=== PATIENT | female | born 1935 | race African-American/Black ===

== ENCOUNTER 2018-05-15 16:12 | Emergency (ER) | payer OTHER ==
[~2018-05-15] VITALS: Ht 167.6 cm; Wt 68.0 kg
--- NOTE | ~2018-05-15 | EKG ---
[place] [address] [facility] [place] [address] ELECTROCARDIOGRAM REPORT Name: MADAI VANCE Room #: PRE [facility].#: [id number] Admission: Attend Phys: Discharge: Date of : 35 Report #: [id number] THIS REPORT FOR: //name// [facility] ED Test Date: 2018-05-15 Test Time: 16:57:47 Pat Name: MADAI VANCE Department: Room: Gender: F Pin Sorter And Bagger: FABI : 1935 Requested By: Estevan Barnes Order Number: [id number] MD: Juan Luis Hagan Measurements Intervals [place] Rate: 50 P: MD: QRS: -51 QRSD: 117 T: -71 QT: 580 QTc: 529 Interpretive Statements Normal sinus rhythm. LVH with IVCD, LAD and secondary repol abnrm No previous ECG available for comparison Electronically Signed On 05-15-2018 17:06:40 CDT by Juan Luis Hagan [email or web address] <ELECTRONICALLY SIGNED> By: Juan Luis Hagan MD 05/15/18 1706 1657 1657 Juan Luis Hagan MD /KATHIA
[~2018-05-15 16:12] MED LIST: LIPITOR10 MG PO; NORVASC 5 MG TAB5 MG PO
[2018-05-15] MEDS ORDERED: LOPRESSOR25 PO (18:57)
[2018-05-15] MEDS ORDERED: PACERONE 200 M200 M1 PO (18:57)
[2018-05-15 21:40] VITALS: BP 136/65
== END 2018-05-15 21:41 | disposition home or self-care (01) ==
LOC: ER 16:12
DX: R00.1 Bradycardia, unspecified (principal); I10 Essential (primary) hypertension; E78.00 Pure hypercholesterolemia, unspecified; F03.90 Unspecified dementia, unspecified severity, without behavioral disturbance, psychotic disturbance, mood disturbance, and anxiety

== ENCOUNTER 2018-07-23 18:59 | Inpatient (IN) | payer OTHER ==
[~2018-07-23] VITALS: Ht 162.6 cm; Wt 61.7 kg
--- NOTE | ~2018-07-23 | O ---
[facility] [place] [address] OPERATIVE REPORT Name: VANCEMADAI Room #: 420-P ADM IN M.R.#: [id number] Admission: 07/23/18 Attend Phys: Ilene Bond Discharge: Date of : 35 Report #: [id number] THIS REPORT FOR: //name// CC: Kaitlynn Baldwin Kraig Valles DATE OF SERVICE: 07/25/2018 SURGEON: Charlie Magaña M.D. STRIP CUTTING MACHINE OPERATOR: None. PREOPERATIVE DIAGNOSES: 1. Unstageable right hip/ischial tuberosity decubitus ulcer. 2. Dementia. 3. Acute kidney injury. 4. Hypertension. 5. Paroxysmal atrial fibrillation. POSTOPERATIVE DIAGNOSES: 1. Stage 4 right hip/ischial tuberosity decubitus ulcer. 2. Dementia. 3. Acute kidney injury. 4. Hypertension. 5. Paroxysmal atrial fibrillation. PROCEDURE: Excisional and ultrasonic debridement of stage 4 right hip/ischial tuberosity decubitus ulcer including skin, subcutaneous tissue and muscle. -Starting measurement 5 x 4 cm. -Ending measurement 7 x 6.5 cm. *Total area of 45.5 square cm. ANESTHESIA: General laryngeal mask anesthesia and local anesthetic. ESTIMATED BLOOD LOSS: 10 mL. SPECIMEN: Right ischial soft tissue including skin, subcutaneous tissue and muscle. COMPLICATIONS: None appreciated. INDICATIONS FOR PROCEDURE: This is a 89-year-old female patient who is a resident at [facility] who has developed a right hip wound over the past several months. The patient was seen in the Emergency Room due to worsening of the wound. Exam revealed an unstageable right ischial decubitus ulcer. She presents today for excisional and ultrasonic debridement. [address] [address] OPERATIVE REPORT Name: RAJIVMADAI Room #: 420-P [facility] IN M.R.#: [id number] Admission: 07/23/18 Attend Phys: Ilene Bond Discharge: Date of : 35 Report #: [id number] DESCRIPTION OF PROCEDURE IN DETAIL: After the risks, benefits and expectations of the operation were discussed in detail with the patient's durable power of real estate attorney and the patient, informed consent was obtained. The patient was identified in the preoperative holding area. She was taken to the Operating Room and she was placed in the supine position. SCDs were placed on the patient's bilateral lower extremities and pneumatic compression was initiated. The patient was then given IV sedation and a laryngeal mask was placed without difficulty. She was placed in the left lateral decubitus position with the right hip up. The right hip was then prepped and draped in the standard sterile fashion. A timeout was performed to identify the correct patient and procedure. Local anesthetic was infiltrated into the skin and subcutaneous tissue and the planned area of incision. A sharp #10 blade scalpel was used to make an incision through the skin and subcutaneous tissue. Electrocautery was used to dissect through the subcutaneous tissue and excised the necrotic tissue. The deep tissue was necrotic as well down to and partially through the muscle. Cultures were taken to be sent for aerobes, anaerobes and fungus. The skin was excised further to identify a healthy bleeding tissue. All grossly nonviable tissue was excised. The wound was then mechanically debrided with a curette. Bleeding points were made hemostatic with electrocautery. The Mitroonix ultrasonic debridement device was then used to mechanically debride the entire surface area of the wound on a more microscopic level. There was good cavitation of the nonviable tissue, which would also help to decrease the bacterial load. Bleeding points were again made hemostatic with electrocautery. After ensuring final hemostasis, the wound was packed with 1:1 Betadine to normal saline on a Kerlix gauze. A 4 x 4s, an ABD and tape were then placed. The patient tolerated the procedure well. She was returned to the supine position, awakened, the laryngeal mask was removed without difficulty and she was taken to the Recovery Room in stable condition with no apparent intraoperative complications. <ELECTRONICALLY SIGNED> By: Charlie Magaña MD, FACS 07/25/18 1223 0915 0952 Charlie Magaña MD, FACS /nt
--- NOTE | ~2018-07-23 | HC ---
[facility] [place] [address] CONSULTATION Name: MADAI VANCE Room #: 420-P [facility] IN M.R.#: [id number] Admission: 07/23/18 Attend Phys: Ilene Bond Discharge: Date of : 35 Report #: [id number] THIS REPORT FOR: //name// CC: Kaitlynn Baldwin Kraig Valles DATE OF SERVICE: 07/24/2018 CHIEF COMPLAINT: Pressure ulceration of the right hip and left heel. HISTORY OF PRESENT ILLNESS: This is an 83-year-old female patient who normally resides at the memory care unit at [facility]. She apparently excoriated her right hip 2-3 months ago, which has turned out into what appears to be necrotic ulceration, possibly exacerbated by pressure. She has had previous surgery on the left side. She developed a small ulceration on her heel that has been improving. The necrosis is on the right hip; however, has progressed to the point where surgical debridement will be required. She is admitted for surgical treatment and evaluation. PAST MEDICAL HISTORY: Positive for hypertension, hypercholesterolemia, advanced dementia, paroxysmal atrial fibrillation, allergic rhinitis, left hip fracture in 03/2018, bradycardia, anemia, requiring previous transfusion. SOCIAL HISTORY: The patient lives in a memory care unit. No history of alcohol or tobacco use. FAMILY HISTORY: Unknown and noncontributory. REVIEW OF SYSTEMS: Unobtainable due to the patient's level of dementia. MEDICATIONS: Include Pacerone, Lopressor, Lipitor, Norvasc, Singulair, aspirin, Tylenol, Xanax, Centrum Silver, Ventolin, and Mobic. PHYSICAL EXAMINATION: VITAL SIGNS: Include pulse 61, temperature 97.4, respiration of 18, blood pressure 120/54. GENERAL: This is a somewhat chronically ill appearing patient appears to be pleasant, in no distress. HEENT: Head normocephalic. Nose and throat clear. NECK: Supple. LUNGS: Clear. ABDOMEN: Soft. Bowel sounds present. EXTREMITIES: Lower extremities demonstrate stage 2 pressure ulceration to the left heel that is relatively superficial, clean, and granulating. Right hip demonstrates an area of circular necrosis over the greater trochanter. It is not overtly infected, although tissue feels boggy and is likely fairly deep. [address] [address] CONSULTATION Name: MADAI VANCE Room #: 420-P [facility] IN M.R.#: [id number] Admission: 07/23/18 Attend Phys: Ilene Bond Discharge: Date of : 35 Report #: [id number] CLINICAL IMPRESSION: 1. Unstageable pressure ulcer of the right hip, which developed apparently initially due to excoriations. 2. Stage 2 pressure in the left heel, improved. 3. Advanced dementia. RECOMMENDATIONS: At this point in time, we will obtain surgical consultation for debridement of the right hip. Likely, we will transition to a wound VAC. We will continue with a bordered foam to the left heel, PRAFO boots, air loss mattress, q. 2 hour turning positioning, aggressive nutritional support. Likely, after a few days, she will be able to return to [facility]. We will continue to follow her likely with a wound VAC. I have addressed all questions with the family. I appreciate being asked to see her in consultation. <ELECTRONICALLY SIGNED> By: Paramjit Davies MD 07/28/18 0754 0017 0239 Paramjit Davies MD /nt
--- NOTE | ~2018-07-23 | PATH ---
[facility] [address] [place] [address] PATHOLOGY RPT PROCEDURE Name: NADIA MORAN Room #: 420-P ADM IN M.R.#: [id number] Admission: 07/23/18 Date of : 35 Discharge: Report #: [id number] Path Case #: [id number] [facility] Accession Number: [id number] . 01 Material submitted: . RIGHT ISCHIAL TISSUE . 01 Clinical history: . Decubitus ulcer . 02 Diagnosis: Right ischial tissue, debridement: - Marked ulceration along with extensive acute inflammation extending into subcutaneous tissue associated with gangrenous necrosis, consistent with debridement tissue. (IUV/db; 07/28/18) LBQ/07/28/2018 . 02 Electronically signed: . Julia Sands MD, Pathologist NPI- [id number] . 01 Gross description: . The specimen is received in formalin, labeled "Nadia Moran, right ischial tissue" and consists of multiple fragments of necrotic pink-torrez to brown skin and soft tissue measuring 8.2 x 7.5 x 2.0 cm. [employer] sections are submitted in A1. (SDY; 07/25/2018) SYU/SYU . 02 Pathologist provided ICD-10: L89.219 . 02 CPT . 977574 Specimen Comment: A courtesy copy of this report has been sent to Specimen Comment: [phone], . Specimen Comment: Report sent to ,DR CHEW / DR CAGLE Specimen Comment: A duplicate report has been generated due to demographic updates. Performed at: [address] [place] [id number] [id number] MD Tomy Conrad MD Phone: [phone] Performed at: [address] [id number] [address] [address] PATHOLOGY RPT PROCEDURE Name: NADIA MORAN Room #: 420-P [facility] IN M.R.#: [id number] Admission: 07/23/18 Date of : 35 Discharge: Report #: [id number] Path Case #: [id number] MD Julia Sands MD Phone: [phone]
[~2018-07-23 18:59] MED LIST changes: +LOPRESSOR25 PO; +PACERONE 200 M200 M1 PO
[2018-07-23 19:01] VITALS: BP 153/48
[2018-07-23] MEDS ORDERED: NORVASC10 MG PO (19:21)
[2018-07-23] MEDS ORDERED: SINGULAIR 10 MG10 M1 PO (19:22)
[2018-07-23] MEDS ORDERED: ASPIR 8181 MG PO (19:23)
[2018-07-23] MEDS ORDERED: TYLENOL325 MG PO (19:23)
[2018-07-23] MEDS ORDERED: XANAX 0.25 MG0.25 MG PO (19:23)
[2018-07-23] MEDS ORDERED: VENTOLIN HFA 1818 GM INH (19:24)
[2018-07-23] MEDS ORDERED: CENTRUM SILVER1 EAC4 PO (19:24)
[2018-07-23] MEDS ORDERED: MOBIC7.5 MG PO (19:25)
[2018-07-23 20:28] LABS: ABSOLUTE NEUTROPHILS 6.9 thou/uL (1.4-8.2); EOSINOPHILS 1.8 % (0.0-3.0); HEMATOCRIT 27.8 % (37.0-47.0); HEMOGLOBIN 9.5 gm/dL (12.0-15.0); LYMPHOCYTES 9.9 % (24.0-44.0); MCH 28.9 pg (26.0-34.0); MCHC 34.2 g/dL (28.0-37.0); MCV 84.7 fL (80.0-100.0); MONOCYTES 8.3 % (1.0-8.0); PLATELET COUNT 370 thou/uL (150-400); RBC 3.28 mil/uL (4.20-5.00); RDW 15.5 % (10.5-14.5); WBC 8.7 thou/uL (4.0-11.0)
[2018-07-23 20:36] LABS: CALCIUM 9.4 mg/dL (8.5-10.1); CREATININE 1.7 mg/dL (0.6-1.0); POTASSIUM 4.5 mmol/L (3.5-5.1)
[2018-07-23 20:42] LABS: ALBUMIN 3.1 g/dL (3.4-5.0); TOTAL BILIRUBIN 0.5 mg/dL (<0.1-1.0); TOTAL PROTEIN 7.3 g/dL (6.4-8.2)
[2018-07-23 22:01] VITALS: BP 116/52
[2018-07-23 22:52] VITALS: BP 118/63
[2018-07-24 05:35] VITALS: BP 140/48
[2018-07-24 05:56] LABS: HEMATOCRIT 28.2 % (37.0-47.0); HEMOGLOBIN 9.4 gm/dL (12.0-15.0); MCH 28.4 pg (26.0-34.0); MCHC 33.3 g/dL (28.0-37.0); MCV 85.2 fL (80.0-100.0); RBC 3.31 mil/uL (4.20-5.00); RDW 15.5 % (10.5-14.5); WBC 7.5 thou/uL (4.0-11.0)
[2018-07-24 06:07] LABS: CALCIUM 9.1 mg/dL (8.5-10.1); CREATININE 1.5 mg/dL (0.6-1.0); POTASSIUM 4.2 mmol/L (3.5-5.1)
[2018-07-24 09:01] VITALS: BP 152/63
[2018-07-24 15:00] VITALS: BP 141/91
[2018-07-24 19:23] VITALS: BP 128/54
[2018-07-25 03:32] VITALS: BP 155/56
[2018-07-25 05:36] LABS: MAGNESIUM 1.8 mg/dL (1.8-2.4)
[2018-07-25 06:28] LABS: FOLIC ACID 40.6 ng/mL (8.6-58.9)
[2018-07-25 07:15] VITALS: BP 147/64
[2018-07-25 11:42] VITALS: BP 133/58
[2018-07-25 16:56] VITALS: BP 115/50
[2018-07-25 20:33] VITALS: BP 113/49
[2018-07-26 04:28] VITALS: BP 113/49
[2018-07-26 07:25] VITALS: BP 137/59
[2018-07-26 09:55] LABS: HEMATOCRIT 28.4 % (37.0-47.0); HEMOGLOBIN 9.5 gm/dL (12.0-15.0); MCH 28.6 pg (26.0-34.0); MCHC 33.4 g/dL (28.0-37.0); MCV 85.7 fL (80.0-100.0); RBC 3.31 mil/uL (4.20-5.00); WBC 7.7 thou/uL (4.0-11.0)
[2018-07-26 10:06] LABS: CREATININE 1.1 mg/dL (0.6-1.0); POTASSIUM 4.2 mmol/L (3.5-5.1)
[2018-07-26 20:01] VITALS: BP 123/56
[2018-07-27 04:06] VITALS: BP 148/98
[2018-07-27 07:20] VITALS: BP 155/59
[2018-07-27 16:49] VITALS: BP 139/57
[2018-07-27 19:28] VITALS: BP 115/67
[2018-07-28 05:25] VITALS: BP 129/47
[2018-07-28 09:44] VITALS: BP 142/55
[2018-07-28] MEDS ORDERED: TRAMADOL 50 MG50 MG PO (12:48)
[2018-07-28] MEDS ORDERED: MIRALAX17 GM PO (12:48)
[2018-07-28] MEDS ORDERED: BACTRIM DS TAB1 EACH PO (12:48)
[2018-07-28 17:17] VITALS: BP 138/60
[2018-07-28 20:15] VITALS: BP 119/59
[2018-07-28 20:45] VITALS: BP 125/56
[2018-07-29 05:00] VITALS: BP 176/76
[2018-07-29 05:30] VITALS: BP 133/54
[2018-07-29 09:00] VITALS: BP 130/57
[2018-07-29 15:52] VITALS: BP 118/42
[2018-07-30 06:36] VITALS: BP 129/63
[2018-07-30 08:09] VITALS: BP 112/50
[2018-07-30 13:00] VITALS: BP 121/50
== END 2018-07-30 15:07 | DRG 853 ==
LOC: ER 18:59 → EROBS 20:30 → 4E 20:30 → EROBS 20:35 → 4E 22:55
PROVIDERS: Emergency Medicine; Nurse Practitioner Family; Surgery
PROC: 0KBN0ZZ Excision of Right Hip Muscle, Open Approach (ICD-10-PCS; principal; 2018-07-25)
DX: A41.9 Sepsis, unspecified organism (principal); L89.623 Pressure ulcer of left heel, stage 3; L89.214 Pressure ulcer of right hip, stage 4; N17.9 Acute kidney failure, unspecified; E46 Unspecified protein-calorie malnutrition; I10 Essential (primary) hypertension; E78.00 Pure hypercholesterolemia, unspecified; L89.210 Pressure ulcer of right hip, unstageable; F03.90 Unspecified dementia, unspecified severity, without behavioral disturbance, psychotic disturbance, mood disturbance, and anxiety; D63.8 Anemia in other chronic diseases classified elsewhere; B96.20 Unspecified Escherichia coli [E. coli] as the cause of diseases classified elsewhere; B95.2 Enterococcus as the cause of diseases classified elsewhere; B95.62 Methicillin resistant Staphylococcus aureus infection as the cause of diseases classified elsewhere; I48.0 Paroxysmal atrial fibrillation; F41.9 Anxiety disorder, unspecified; M19.90 Unspecified osteoarthritis, unspecified site; Z68.23 Body mass index [BMI] 23.0-23.9, adult; Z87.81 Personal history of (healed) traumatic fracture; Z79.82 Long term (current) use of aspirin; Z79.899 Other long term (current) drug therapy
CPT/HCPCS: 10084; 50010; 50101; 50386; 50403; 57119; 57120; 57188; 57189; 62110; 62900; 70005

== ENCOUNTER 2018-08-29 13:17 | Inpatient (IN) | payer OTHER ==
[~2018-08-29] VITALS: Ht 172.7 cm; Wt 68.0 kg
[~2018-08-29 13:17] MED LIST changes: +ASPIR 8181 MG PO; +BACTRIM DS TAB1 EACH PO; +CENTRUM SILVER1 EAC4 PO; +MIRALAX17 GM PO; +MOBIC7.5 MG PO; +NORVASC10 MG PO; +SINGULAIR 10 MG10 M1 PO; +TRAMADOL 50 MG50 MG PO; +TYLENOL325 MG PO; +VENTOLIN HFA 1818 GM INH; +XANAX 0.25 MG0.25 MG PO
[2018-08-29 13:18] VITALS: BP 135/61
[2018-08-29] MEDS ORDERED: PACERONE 200 M200 M1 PO (13:34)
[2018-08-29] MEDS ORDERED: MIRALAX17 GM PO (13:38)
[2018-08-29] MEDS ORDERED: REMERON15 MG PO (13:39)
[2018-08-29] MEDS ORDERED: MACROBID 100 M100 MG PO (13:41)
[2018-08-29] MEDS ORDERED: DAKIN'S473 M2 TOP (13:42)
[2018-08-29 13:49] LABS: ABSOLUTE NEUTROPHILS 10.3 thou/uL (1.4-8.2); BASOPHILS 0.6 % (0.0-2.0); EOSINOPHILS 1.4 % (0.0-3.0); HEMATOCRIT 26.3 % (37.0-47.0); HEMOGLOBIN 8.6 gm/dL (12.0-15.0); LYMPHOCYTES 11.3 % (24.0-44.0); MCH 27.4 pg (26.0-34.0); MCHC 32.6 g/dL (28.0-37.0); MONOCYTES 7.3 % (1.0-8.0); PLATELET COUNT 505 thou/uL (150-400); POLYS 79.4 % (36.0-66.0); RBC 3.13 mil/uL (4.20-5.00); RDW 16.1 % (10.5-14.5); WBC 12.9 thou/uL (4.0-11.0)
[2018-08-29] MEDS ORDERED: METOPROLOL TART25 MG PO (13:49)
[2018-08-29 13:52] LABS: URINE BILIRUBIN NEGATIVE (Negative); URINE BLOOD NEGATIVE (Negative); URINE CLARITY CLEAR; URINE COLOR YELLOW; URINE GLUCOSE-RANDOM* NEGATIVE (Negative); URINE KETONES NEGATIVE (Negative); URINE LEUKOCYTES-REFLEX NEGATIVE (Negative); URINE NITRITE-REFLEX NEGATIVE (Negative); URINE PROTEIN (DIPSTICK) NEGATIVE (Negative); URINE SPECIFIC GRAVITY 1.025 (1.005-1.035)
[2018-08-29 13:56] LABS: CREATININE 1.2 mg/dL (0.6-1.0); POTASSIUM 3.7 mmol/L (3.5-5.1)
[2018-08-29 14:02] LABS: ALBUMIN 2.4 g/dL (3.4-5.0); DIRECT BILIRUBIN 0.3 mg/dL (<0.1-0.3); TOTAL BILIRUBIN 0.7 mg/dL (<0.1-1.0); TOTAL PROTEIN 7.1 g/dL (6.4-8.2)
[2018-08-29 14:54] VITALS: BP 111/52
--- NOTE | 2018-08-29 18:30 | NUR ---
PT RECEIVED TO RM 422 FROM THE ER AWAKE AND IN NO ACUTE DISTRESS. DAUGHTERS AT BEDSIDE AND ABLE TO HELP W/ PT INFORMATION. DEEP WOUND ON RT HIP W/ PURULENT DRAINAGE PER SENIOR LIVING. IV ANTIBIOTICS STARTED AND DR. DAVENPORT CONSULTED. PT EATS AND TAKES MED W/O ANY PROBLEMS. DOES NEED TO BE FED. C/O PAIN WHEN TURNED.
[2018-08-29 20:39] VITALS: BP 101/36
--- NOTE | 2018-08-30 03:35 | NUR ---
PT IS DISORIENTED.WILL COMPLAIN OF PAIN MOSTLY WHEN SHE IS BEING REPOSITIONED. R HIP PICTURES WERE TAKEN AND DRSG APPLIED. AFEBRILE. ON IV ABTS. PT TAKES ORAL MEDS OKAY. INCONTINENT OF BLADDER. FAMILY CLOSELY INVOLVED. WILL CONTINUE WITH POC TILL EOS.
[2018-08-30 04:17] VITALS: BP 105/40
[2018-08-30 04:47] LABS: HEMATOCRIT 24.5 % (37.0-47.0); MCH 27.5 pg (26.0-34.0); MCHC 32.8 g/dL (28.0-37.0); MCV 83.9 fL (80.0-100.0); RBC 2.92 mil/uL (4.20-5.00); RDW 16.1 % (10.5-14.5); WBC 12.1 thou/uL (4.0-11.0)
[2018-08-30 04:57] LABS: CALCIUM 8.7 mg/dL (8.5-10.1); CREATININE 1.2 mg/dL (0.6-1.0); POTASSIUM 4.1 mmol/L (3.5-5.1)
[2018-08-30 08:00] VITALS: BP 112/42
--- NOTE | 2018-08-30 15:47 | NUR ---
ASSUMED CARE OF PT AT APPROX 0700. PT IS ALERT AND ORIENTED TO SELF ONLY. LETHARGIV AND SLEEPING MOST OF DAY. PT IS NOT EATING MUCH I HAVE TRIED SEVERAL TIMES ONLY GETTING PT TO EAT A FEW BITES AT A TIME. UPDATED SEVERAL FAMILY MEMBERS ON STATUS OF PT. MAKING SLOW PROGRESS TOWARDS POC. WILL CONTINUE TO MONITOR.
[2018-08-30 16:10] VITALS: BP 102/45
[2018-08-30 22:15] VITALS: BP 114/48
[2018-08-31 03:25] VITALS: BP 125/50
--- NOTE | 2018-08-31 04:30 | NUR ---
ASSESSMENT COMPLETED.Q2 HR TURN PROVIDED. PT NPO SINCE MIDNIGHT. PLAN FOR R HIP WOUND DEBRIDEMENT TODAY. PT IS AFEBRILE.
[2018-08-31 04:51] VITALS: BP 114/48
[2018-08-31 05:32] LABS: HEMATOCRIT 25.5 % (37.0-47.0); HEMOGLOBIN 8.2 gm/dL (12.0-15.0); MCH 27.3 pg (26.0-34.0); MCHC 32.2 g/dL (28.0-37.0); MCV 84.7 fL (80.0-100.0); RBC 3.01 mil/uL (4.20-5.00); RDW 16.3 % (10.5-14.5); WBC 12.4 thou/uL (4.0-11.0)
[2018-08-31 05:50] LABS: ALBUMIN 2.4 g/dL (3.4-5.0); CALCIUM 8.7 mg/dL (8.5-10.1); CREATININE 1.1 mg/dL (0.6-1.0); POTASSIUM 3.9 mmol/L (3.5-5.1); TOTAL BILIRUBIN 0.9 mg/dL (<0.1-1.0); TOTAL PROTEIN 6.9 g/dL (6.4-8.2)
--- NOTE | 2018-08-31 11:13 | HC ---
[facility] [place] [address] CONSULTATION Name: VANCEMADAI Room #: 422-P ADM IN M.R.#: [id number] Admission: 08/29/18 Attend Phys: Blank Gomez MD Discharge: Date of : 35 Report #: [id number] THIS REPORT FOR: //name// CC: Kaitlynn Telmamary Blank Gomez DATE OF SERVICE: 08/30/2018 REASON FOR CONSULTATION: Evaluate right hip wound infection. HISTORY OF PRESENT ILLNESS: An 83-year-old transferred from [facility] with progressive right hip wound. She had previously been hospitalized in July for surgical debridement of this wound. Subsequently, has had increased drainage and odor. X-ray showed questionable osteomyelitis involving the greater trochanter. The patient was demented and unable to give any history. History was gleaned from the chart. No reported fever, chills or sweats. She had been discharged on 07/30/2018 on Bactrim. Previous culture had revealed MRSA, E. coli and Enterococcus faecalis. The MRSA was sensitive to gentamicin, rifampin, tetracycline, Bactrim and vancomycin. The E. coli was sensitive to all drugs tested except for ampicillin, Augmentin, cefuroxime. The Enterococcus was penicillin susceptible and vancomycin susceptible. REVIEW OF SYSTEMS: The patient denies any headache, cough, sputum, nausea, vomiting, diarrhea, or dysuria. A 10-point review otherwise negative. PAST MEDICAL HISTORY: Hypertension, hyperlipidemia, dementia, atrial fibrillation, allergic rhinitis, left hip fracture with repair, bradycardia, anemia, blood transfusion. FAMILY HISTORY: Noncontributory. SOCIAL HISTORY: Nonsmoker, no significant alcohol intake. ALLERGIES: None known. MEDICATIONS: As noted on her MAR, which were reviewed. PHYSICAL EXAMINATION: GENERAL: The patient was alert and reasonably cooperative. She appeared her stated age. She was in no distress. VITAL SIGNS: Stable. HEENT: Eyes without scleral icterus or conjunctivitis. Mouth without mucositis. NECK: Supple, with no thyromegaly or mass. SKIN: With a stage 4 decubitus on the right greater trochanteric region. There was exposed fascia. There was minimal surrounding granulation tissue. [facility] [address] [place] [address] CONSULTATION Name: MADAI VANCE Room #: 422-P [facility] IN M.R.#: [id number] Admission: 08/29/18 Attend Phys: Blank Gomez MD Discharge: Date of : 35 Report #: [id number] amount of greenish drainage. No surrounding cellulitis. No other decubiti or rash. No palpable adenopathy. LUNGS: Clear. HEART: Regular, without murmur, gallop or rub. ABDOMEN: Soft, nontender, no hepatosplenomegaly or mass. No CVA tenderness. BACK: Spine was nontender. RECTAL: Not performed. EXTREMITIES: Without edema or cyanosis. NEUROLOGIC: Cranial nerves intact. Strength in the upper and lower extremities was weak, bilateral and symmetric. 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 She had overall increased muscle tone and stiffness, especially in the lower extremities. Unable to cooperate recently with this exam in the lower extremities. She was demented. NEUROLOGIC: Otherwise is normal. LABORATORY STUDIES: Hemoglobin 8, WBC 12.1, platelet count was 463,000, 79% segs, 11% lymphs. Sodium 143, potassium 4.1, bicarbonate 25, creatinine 1.2. Urinalysis unremarkable. CT scan of the pelvis, right pelvic wound with air tracking to the right greater trochanter with cortical change consistent with osteomyelitis. No abscess. Hip x-rays showed no evidence of acute hip fracture. IMPRESSION: 1. An 83-year-old with underlying dementia, essentially bedbound with nonhealing wound, right hip and evidence of greater trochanteric osteomyelitis. Previous cultures had revealed methicillin resistant Staphylococcus aureus, Escherichia coli, Enterococcus. 2. Atrial fibrillation. 3. Hypertension. 4. Dementia. RECOMMENDATION: We will continue IV antibiotic therapy. Surgical consultation for debridement of the left greater trochanter. Continue with offloading and localized wound care. <ELECTRONICALLY SIGNED> By: Douglas Molina MD 08/31/18 1113 1028 1503 Douglas Molina MD /nt
--- NOTE | 2018-08-31 12:40 | HC ---
[facility] [place] [address] CONSULTATION Name: MADAI VANCE Room #: 422-P ADM IN M.R.#: [id number] Admission: 08/29/18 Attend Phys: Blank Gomez MD Discharge: Date of : 35 Report #: [id number] THIS REPORT FOR: //name// CC: Kaitlynn Telmamary Blank Gomez DATE OF SERVICE: 08/30/2018 REASON FOR CONSULTATION: Necrotic malodorous pressure ulcer of right hip. HISTORY OF PRESENT ILLNESS: The patient is an 83-year-old woman with known dementia, admitted from the Alzheimer's Unit at [facility] when she was discovered to have a draining foul smelling pressure ulcer of the right hip. This may be chronic. The patient was admitted, Infectious Disease was consulted and she had been placed on IV antibiotics for infected pressure ulcer of the right hip. Dr. Cooper Koch, General Surgery has been consulted for need of debridement. The patient is getting Dakin's dressing to the wound presently. PAST MEDICAL HISTORY: Anemia, Alzheimer dementia, history of sacral ulcers, hypertension, hypercholesterolemia, allergic rhinitis, bradycardia. ALLERGIES: None. MEDICATIONS: Include Lipitor, Norvasc, Tylenol, Xanax, Mobic, Pacerone, MiraLax, Remeron, Macrobid, Singulair, aspirin, Centrum Silver. PAST SURGICAL HISTORY: Repair of left hip fracture in 03/2018. LABORATORY DATA: Severe protein-calorie malnutrition, albumin 2.4. White blood count 12.9. PHYSICAL EXAMINATION: GENERAL: Shows woman with Alzheimer's, who is agitated with inspection of the wound. She appears thin and malnourished. Mucous membranes are moist. She does not appear septic. LUNGS: Clear. ABDOMEN: Soft. EXTREMITIES: Shows a well demarcated 4 x 4 cm pressure ulcer of the right lateral trochanteric hip. Wound is 1.5 cm deep. At the base of the wound appears necrotic fascia with yellowish malodorous draining. There may be some tracking of the wound. Necrotic connective tissue at the base of the wound. No overt cellulitis. Wound is malodorous. IMPRESSION: 1. Alzheimer disease. [facility] [address] [place] [address] CONSULTATION Name: MADAI VANCE Room #: 422-P ADM IN M.R.#: [id number] Admission: 08/29/18 Attend Phys: Blank Gomez MD Discharge: Date of : 35 Report #: [id number] 2. Immobility. 3. Severe protein-calorie malnutrition, albumin 2.4. 4. Necrotic stage 4 pressure ulcer of the right hip with significant necrotic burden. PLAN: Quarter strength Dakin's packing to the wound. IV antibiotics. Surgical consultation with Dr. Cooper Koch. I spoke with Dr. Koch about the wound. She will plan a surgical debridement on 08/31/2018 after consent is obtained from the family. <ELECTRONICALLY SIGNED> By: Osvaldo Shelton MD 08/31/18 1240 0733 1036 Osvaldo Shelton MD /nt
--- NOTE | 2018-08-31 17:44 | NUR ---
ASSUMED PT CARE AT 0700H. PT ALERT. PT HAS NO S/S OF DISTRESS. PT BP LOW, PT HAS NOT BEING COVERED ON MEDS. PT SEEN BY SURGEON AND SCHEDULED FOR TOMORROW. PT CHILDREN AT BEDSIDE SIGNED CONSENT. PT FAMILY CONCERN IF R HIP WAS CAUSED FROM THERAPY SIT PT FOR 30 MINS. PT DRSG CHANGED. PT DRSG C/D/I. PT BATH GIVEN. PT TOLERATED A FEW BITES OF MEALS. PT HAD A SMEAR OF BOWEL. PT TOLERATES MEDS. PT CONT ON Q2 TURNS. PT CALL LIGHT WITHIN REACH. PT CONTINUES TO BE MONITORED FOR SAFETY.
[2018-08-31 19:33] VITALS: BP 97/39
--- NOTE | 2018-09-01 03:54 | NUR ---
ASSUMED CARE 0. VSS. ASSESSMENT CHARTED. PT DENIES ANY PAIN OR CONCERNS. BP LOW, MEDS HELD PER EMAR. R HIP DRESSING CDI. NPO. Q2 TURNS. PLAN FOR LABS THIS AM AND I&D FOR WOUND THIS AM. WILL CONTINUE TO MONITOR ADN WITH POC.
[2018-09-01 04:21] VITALS: BP 117/42
[2018-09-01 05:28] LABS: HEMATOCRIT 24.2 % (37.0-47.0); MCHC 32.9 g/dL (28.0-37.0); MCV 84.9 fL (80.0-100.0); RBC 2.85 mil/uL (4.20-5.00); RDW 16.6 % (10.5-14.5); WBC 10.4 thou/uL (4.0-11.0)
[2018-09-01 05:44] LABS: ALBUMIN 2.2 g/dL (3.4-5.0); CALCIUM 8.5 mg/dL (8.5-10.1); CREATININE 1.2 mg/dL (0.6-1.0); POTASSIUM 3.7 mmol/L (3.5-5.1); TOTAL BILIRUBIN 0.6 mg/dL (<0.1-1.0); TOTAL PROTEIN 6.7 g/dL (6.4-8.2)
[2018-09-01 07:32] VITALS: BP 127/47
--- NOTE | 2018-09-01 08:24 | NUR ---
ASSUMED CARE OF PT AT 0700. ASSESSMENT COMPLETED AND CHARTED. HX SLEEPING, BUT AROUSABLE. ORIENTED ONLY TO SELF, HX DEMENTIA. DOES NOT APPEAR TO BE IN ANY DISTRESS. ROOM AIR. BP MEDS HELD. FAMILY AT BEDSIDE. WILL CONTINUE TO MONITOR.
--- NOTE | 2018-09-01 12:18 | NUR ---
PT LEFT THE UNIT AT 12:15 IN STABLE CONDITION FOR PROCEDURE. FAMILY AT BEDSIDE. WILL WAIT FOR RETURN.
--- NOTE | 2018-09-01 15:36 | NUR ---
PT RETURNED TO ROOM FROM PACU AT 15:33 IN STABLE CONDITION. PT DROWSY, BUT AWAKE. RIGHT HIP SURGICAL DRESSING INTACT, NO BLEEDING NOTED. REPORTING RIGHT INCISION PAIN, WILL GIVE PAIN MEDS ORDERED. WOUND CARE NOTIFIED ABOUT PT ARRIVAL AND WOUND CARE TO FOLLOW UP TOMORROW. WILL CONTINUE TO MONITOR.
[2018-09-01 15:41] VITALS: BP 115/56
[2018-09-01 16:52] VITALS: BP 110/51
--- NOTE | 2018-09-01 19:09 | NUR ---
END OF SHIFT. PT REPORTED RIGHT HIP PAIN POST OP, PO PAIN MEDS GIVEN ORDERED. DENIES N/V. TOLERATING DIET. FAMILY AT BEDSIDE.
[2018-09-01 19:30] VITALS: BP 97/53
--- NOTE | 2018-09-02 03:04 | NUR ---
Assumed care of pt at 1900. Pt alert and oriented to self only. Dressing on surgical incision clean and intact. Q2h turn. C/o pain when repositioning. Incontinent of b&b. Pt is a feeder. Room air. Fall precautions in place. Will continue to monitor.
[2018-09-02 04:29] VITALS: BP 119/62
[2018-09-02 05:34] LABS: ABSOLUTE RETIC COUNT 0.0439 10^6/uL; OBSERVED RETIC COUNT 1.54 % (0.6-2.6)
[2018-09-02 07:45] VITALS: BP 119/45
[2018-09-02 07:52] LABS: HEMATOCRIT 24.1 % (37.0-47.0); HEMOGLOBIN 7.9 gm/dL (12.0-15.0); MCH 27.8 pg (26.0-34.0); MCHC 32.7 g/dL (28.0-37.0); RBC 2.83 mil/uL (4.20-5.00); RDW 16.6 % (10.5-14.5); WBC 12.3 thou/uL (4.0-11.0)
[2018-09-02 07:57] LABS: CALCIUM 8.7 mg/dL (8.5-10.1); CREATININE 1.2 mg/dL (0.6-1.0); MAGNESIUM 2.2 mg/dL (1.8-2.4); POTASSIUM 4.4 mmol/L (3.5-5.1)
--- NOTE | 2018-09-02 07:57 | O ---
[facility] [place] [address] OPERATIVE REPORT Name: MADAI VANCE Room #: 422-P ADM IN M.R.#: [id number] Admission: 08/29/18 Attend Phys: Blank Gomez MD Discharge: Date of : 35 Report #: [id number] THIS REPORT FOR: //name// CC: OGMARQUIS Gomez DATE OF SERVICE: 09/01/2018 SURGEON: Charlie Magaña MD METAL REED TUNER: None. PREOPERATIVE DIAGNOSES: 1. Unstageable right hip/greater trochanteric decubitus ulcer. 2. Dementia. 3. Hypertension. 4. Paroxysmal atrial fibrillation. POSTOPERATIVE DIAGNOSES: 1. Stage 4 right greater trochanteric decubitus ulcer. 2. Dementia. 3. Hypertension. 4. Paroxysmal atrial fibrillation. PROCEDURE: Excisional and ultrasonic debridement of stage 4 right greater trochanteric decubitus ulcer including skin, subcutaneous tissue, muscle and bone with initial measurements of 25 cm2 and ending measurements of 64 cm2. ANESTHESIA: General endotracheal anesthesia and local anesthetic. ESTIMATED BLOOD LOSS: 10 mL. SPECIMEN: Right greater trochanteric skin, soft tissue and muscle, right greater trochanteric bone. COMPLICATIONS: None appreciated. INDICATIONS FOR PROCEDURE: This is an 83-year-old resident of [facility], who had developed a right hip wound over the past several months, status post excisional debridement on 07/25/2018. At that time, there was felt to be no bony involvement. The patient recovered from this and was transferred back to [facility]. She was transferred back to [facility] 2 days ago with a worsening right hip wound. She underwent a CT of the pelvis showing possible osteomyelitis. The patient presents today for excisional and ultrasonic debridement with the Misonix debridement device. [address] [address] OPERATIVE REPORT Name: VANCEMADAI Room #: 422-P [facility] IN M.R.#: [id number] Admission: 08/29/18 Attend Phys: Blank Gomez MD Discharge: Date of : 35 Report #: [id number] OPERATIVE FINDINGS: The initial measurements were 5 x 5 cm with ending measurements of 8 x 8 cm (64 cm2). There was undermining of the tissue around the bone, which required enlargement of the incision. Infected tissue was present directly overlying the bone with no evidence for bony involvement after removal of the outer table. At the conclusion of the operation, sponge, needle and instrument counts were correct. DESCRIPTION OF PROCEDURE IN DETAIL: After the risks, benefits and expectations of the operation were discussed in detail with the patient, informed consent was obtained. The patient was identified in the preoperative holding area. She was given IV antibiotics on a scheduled basis since her hospitalization. She was taken to the operating room, and she was placed in the supine position. SCDs were placed on the patient's bilateral lower extremities and pneumatic compression was initiated. The patient was then given IV sedation, and she was intubated without incident. She was placed in the left lateral decubitus position. Her right hip was prepped and draped in the standard sterile fashion with Betadine. A time-out was performed identifying the correct patient and procedure after prepping and draping the patient. Local anesthetic was infiltrated into the skin and subcutaneous tissue around the wound. The planned incision was drawn out after digitally probing the wound. A sharp #10 blade scalpel was used to make incision. Electrocautery was used to dissect through subcutaneous tissue down to the undermined area. The skin, soft tissue and muscle were excised to be sent for specimen. Directly beneath this, there was a layer of necrotic tissue that was unroofed. Underneath, malodorous mucoid fluid was present. This was excised/removed, and cultures were taken to be sent for aerobes, anaerobes and fungus. The outer table of bone was then seen. A rongeur was used to remove the outer table and expose the marrow of the bone. The rongeur was also used on the marrow. Cultures were again taken. A rasp was used to smooth out the jagged edges of the bone. The wound was then copiously irrigated. Bleeding points were made hemostatic with electrocautery. The CrowdPlatonix ultrasonic debridement device was then used to mechanically debride the entire wound surface area with good cavitation of the tissue and with a gentle ooze of blood from the tissue thereafter. After ensuring final hemostasis, the wound was packed with 1:1 Betadine to normal saline on Kerlix. 4 x 4s, an ABD pad, and tape were applied. The patient tolerated the procedure well. She was returned to supine position, awakened, extubated and taken to recovery room in stable condition with no apparent intraoperative complications. <ELECTRONICALLY SIGNED> By: Charlie Magaña MD, FACS 09/02/18 [id number] Charlie Magaña MD, FACS /nt
--- NOTE | 2018-09-02 10:23 | NUR ---
INITIAL ASSESSMENT: Pt evaluated for d/c planning needs. Reviewed chart and spoke with nurse, pt and pt's daughter Terra. Pt is in SNF at [facility] Pt was hospitalized at [facility] in July and [place] [facility] [place]. Family plans on pt returning to [facility] [place] d/c from hospital. Will ask tool planner to fax referral to [facility]. Will remain available to assist as needed.
--- NOTE | 2018-09-02 10:35 | NUR ---
Assess due to RD consult received for pt with poor intake and wound. Familiar with pt from prior admits. Wts is stable at 150 lb. Has stage IV necrotic right hip wound. Family very involved in care, orders foods from menu and pt is feeder. On mirtazapine. Needs mechanical altered ground diet and really likes strawberry ensure enlive per daughter so will adjust diet order to comply with wishes. +Sarcopenia screen and malnutrition has been indicated by physician-will defer. Moderate risk, and will follow weekly with nutrition interventions already in place.
[2018-09-02 11:12] LABS: % SATURATION 20 % (20-39); IRON 23 ug/dL (50-170); TIBC 113 ug/dL (250-450)
--- NOTE | 2018-09-02 13:53 | NUR ---
FAXED CLINICAL UPDATE TO [facility] SPOKE WITH MAHENDRA IN ADM. AND SHE RECEIVED UPDATE WILL FAX PT/OT NOTES ONCE AVAILABLE. DCP TO FOLLOW.
--- NOTE | 2018-09-02 13:59 | NUR ---
WOUND CONSULT: PT. WAS SEEN TODAY BY DR. ORELLANA AND MYSELF. PT. IS KNOWN TO THE WOUND CARE TEAM. PT. UNDERWENT SURGICAL DEBRIDEMENT YESTERDAY OF HER STAGE 4 PRESSURE ULCER TO HER RIGHT GREATER TROCHANTER. RECOMMENDATIONS: PT. WILL START ON WOUND VAC THERAPY WHEN SHE RETURNS TO HER FACILITY TOMORROW. CONTINUE ON DAKIN'S WET TO DRY UNTIL THIS TIME. PT. AND STAFF NURSE WERE INSTRUCTED ON PLAN OF CARE.
[2018-09-02 19:45] VITALS: BP 107/57
[2018-09-03 03:05] VITALS: BP 138/55
--- NOTE | 2018-09-03 03:44 | NUR ---
Pt A&O to self, assessment complete per [employer]. Q2turn and reposition, offload heels for skin integrity. DRSG to R hip C/D/I. No bm this shift. C/o pain with reposition, medicated per orders for pain, pt has rested well thoughout the NOC. No N/V. Pt currently resting in bed, call light within reach, will continue to be monitored.
[2018-09-03 05:51] LABS: CALCIUM 8.3 mg/dL (8.5-10.1); CREATININE 1.1 mg/dL (0.6-1.0); MAGNESIUM 2.2 mg/dL (1.8-2.4); POTASSIUM 3.9 mmol/L (3.5-5.1)
[2018-09-03 05:54] LABS: HEMATOCRIT 23.1 % (37.0-47.0); HEMOGLOBIN 7.6 gm/dL (12.0-15.0); MCH 27.8 pg (26.0-34.0); MCHC 32.9 g/dL (28.0-37.0); MCV 84.6 fL (80.0-100.0); RBC 2.73 mil/uL (4.20-5.00); RDW 16.6 % (10.5-14.5); WBC 14.4 thou/uL (4.0-11.0)
[2018-09-03 07:28] VITALS: BP 140/59
--- NOTE | 2018-09-03 15:07 | PATH ---
[facility] [address] [place] [address] PATHOLOGY RPT PROCEDURE Name: NADIA MORAN Room #: 422-P ADM IN M.R.#: [id number] Admission: 08/29/18 Date of : 35 Discharge: Report #: [id number] Path Case #: [id number] [facility] Accession Number: [id number] . 01 Material submitted: . PART A: TISSUE RIGHT ISCHIAL TUBEROSITY DECUBTUS ULCER PART B: BONE RIGHT ISCHIAL TUBEROSITY . 01 Clinical history: . Right hip infection . 02 Diagnosis: A. Tissue right ischial tuberosity decubitus ulcer, debridement: - Ulceration along with fibrinoid degeneration and marked acute inflammation extending into underlying subcutaneous tissue, compatible with a decubitus ulcer. . B. Bone right ischial tuberosity, debridement: - Marked acute and chronic inflammation associated with osteonecrosis. - Surrounding tissue showing bacterial aggregates and fibrinoid degeneration. (IUV:lexa; 09/03/2018) QMS/09/03/2018 . 02 Electronically signed: . Julia Sands MD, Pathologist NPI- [id number] . 01 Gross description: . A. Received in formalin labeled "Nadia Moran, tissue right ischial tuberosity decubitus ulcer," is a segment of skin with attached underlying soft tissue measuring 7.5 x 2.0 cm, and excised to a depth of 2.5 cm. The epidermal surface is wrinkled and bleached white to dark torrez-brown in appearance. Serial sectioning reveals marbled, pale torrez to bright/pastel yellow cut surfaces. A full-thickness transverse section is submitted in cassette A1. . B. Received in formalin labeled "Nadia Moran, bone right ischial tuberosity is a 2.7 x 1.5 x 0.3 cm aggregate of torrez-brown soft tissue fragments admixed with granular, dark torrez possible bone. The specimen is submitted entirely in cassette B1, following light decalcification. (DAC; 09/02/2018) XDC/XDC . 02 Pathologist provided ICD-10: L89.219, M87.851 . [address] [place] [address] PATHOLOGY RPT PROCEDURE Name: NADIA MORAN Room #: 422-P ADM IN M.R.#: [id number] Admission: 08/29/18 Date of : 35 Discharge: Report #: [id number] Path Case #: [id number] CPT . [id number], [id number], [id number] Specimen Comment: A courtesy copy of this report has been sent to Specimen Comment: [phone], , . Specimen Comment: Report sent to , and Performed at: [address], [place] [id number] MD Tomy Cnorad MD Phone: [phone] Performed at: [address] [id number] MD Julia Sands MD Phone: [phone]
--- NOTE | 2018-09-03 15:23 | NUR ---
Following for d/c planning needs. Spoke with admissions liaison at [facility] and she has not received insurance authorization.
--- NOTE | 2018-09-03 15:24 | NUR ---
WOUND FOLLOW UP: PT. WAS SEEN TODAY BY DR. ORELLANA AND MYSELF. PT. WOUND IS STABLE AT THIS TIME. RECOMMENDATIONS: CONTINUE WITH CURRENT PLAN OF CARE. PT. AND STAFF NURSE WERE INSTRUCTED ON PLAN OF CARE.
[2018-09-03 19:22] VITALS: BP 123/51
--- NOTE | 2018-09-03 20:47 | NUR ---
ASSUMED CARE OF PT AT 0700. ASSESSMENT COMPLETED AND CHARTED. SLEEPING, BUT AROUSABLE. ORIENTED TO SELF ONLY, HX DEMENTIA. DOES NOT APPEAR TO BE IN ANY DISTRESS, PT LYING IN BED. FAMILY AT BEDSIDE. HTN NOTED, BP MEDS GIVEN ORDERED. ROOM AIR. INCONTINENT B/B. RIGHT HIP WOUND, DRESSING CHANGED ORDERED. PAIN MEDS GIVEN ORDERED FOR RIGHT HIP WOUND PAIN AND TURNING. PT SELF REMOVED IV, NEW IV INSERTED. PT TOLERATED PROCEDURE WELL. NO OTHER CHANGE IN STATUS.
--- NOTE | 2018-09-04 00:05 | NUR ---
ASSUMED PT CARE 1900. PT ALERT TO SELF. VSS. REASSESSMENT COMPLETED. PT REPORTS NO PAIN AT THIS TIME. DRESSING IS C/D/I. IV DRESSING C/D/I. NO SIGNS OF INFILTRATION. WILL CONTINUE POC UNTIL EOS.
[2018-09-04 03:37] VITALS: BP 146/59
[2018-09-04 06:09] LABS: HEMATOCRIT 23.6 % (37.0-47.0); HEMOGLOBIN 7.7 gm/dL (12.0-15.0); MCH 27.4 pg (26.0-34.0); MCHC 32.5 g/dL (28.0-37.0); MCV 84.3 fL (80.0-100.0); RBC 2.79 mil/uL (4.20-5.00); RDW 16.8 % (10.5-14.5); WBC 10.6 thou/uL (4.0-11.0)
[2018-09-04 06:30] LABS: CALCIUM 8.6 mg/dL (8.5-10.1); MAGNESIUM 1.9 mg/dL (1.8-2.4); POTASSIUM 3.7 mmol/L (3.5-5.1)
[2018-09-04 07:32] VITALS: BP 152/58
--- NOTE | 2018-09-04 11:29 | NUR ---
WOUND FOLLOW UP: PT. WAS SEEN TODAY BY DR. ORELLANA AND MYSELF. PT. WOUND IS CLINCALLY BETTER TODAY. RECOMMENDATIONS; CONTINUE WITH CURRENT PLAN OF CARE. PT. AND STAFF NURSE WERE INSTRUCTED ON PLAN OF CARE.
[2018-09-04] MEDS ORDERED: KEFLEX500 M1 PO ×2 (12:05→12:11)
[2018-09-04] MEDS ORDERED: LINEZOLID600 MG PO ×2 (12:05→12:11)
[2018-09-04 12:30] VITALS: BP 152/58
--- NOTE | 2018-09-04 14:35 | NUR ---
PT. DISCHARGING TODAY TO [facility]. FAXED DC ORDERS/SUMMARY TO FACILITY AND SPOKE WITH MAHENDRA IN ADM, SHE RECEIVED ORDERS. DCP [facility] FOR [phone]. NOTIFIED DTR ([facility]) OF DISCHARGE AND TIME OF TRANSPORT. UNIT NOTIFIED AND CHART COPY PER US. RN TO CALL REPORT TO [phone].
[2018-09-04] MEDS ORDERED: ZYVOX600 MG/300 IV (14:48)
--- NOTE | 2018-09-04 15:25 | NUR ---
VASCULAR ACCESS CONSULTED FOR MIDLINE. PT'S LABS,MEDS,HISTORY,REVIEWED. DISCUSSED WITH DAUGHTER BENEFITS AND RISK OF MIDLINE,VERBALIZED UNDERSTANDING.JOHANNE BASILIC WAS WIDELY PATENT WITH USG,1% LIDOCAINE GIVEN SC. 4FR POWER MIDLINE TRIMMED TO 11CM INSERTED TO 0CM WITH BRISK BR/FLUSH. ML SECURED AND RELEASED FOR IMMEDIATE USE PER PROTOCOL. WALLET CARD GIVEN TO DAUGHTER
--- NOTE | 2018-09-04 16:41 | NUR ---
ORDERS RECEIVED TO DC PT BACK TO [facility].IV REMOVED FROM L FA, MIDLINE PLACED PER IV TEAM FOR IV ANTIBIOTICS. PT TRANPORTED BY [facility].
== END 2018-09-04 16:41 | DRG 853 ==
LOC: ER 13:17 → EROBS 14:44 → 4E 14:44
PROVIDERS: Emergency Medicine; Hospitalist; Internal Medicine; Surgery; ADMIT Internal Medicine
PROC: 0QB60ZZ Excision of Right Upper Femur, Open Approach (ICD-10-PCS; principal; 2018-09-01)
PROC: 05HY33Z Insertion of Infusion Device into Upper Vein, Percutaneous Approach (ICD-10-PCS; 2018-09-04)
DX: A41.9 Sepsis, unspecified organism (principal); L89.214 Pressure ulcer of right hip, stage 4; E43 Unspecified severe protein-calorie malnutrition; M86.9 Osteomyelitis, unspecified; E78.5 Hyperlipidemia, unspecified; E78.00 Pure hypercholesterolemia, unspecified; G30.9 Alzheimer's disease, unspecified; F02.80 Dementia in other diseases classified elsewhere, unspecified severity, without behavioral disturbance, psychotic disturbance, mood disturbance, and anxiety; J30.9 Allergic rhinitis, unspecified; I48.0 Paroxysmal atrial fibrillation; M62.84 Sarcopenia; F41.9 Anxiety disorder, unspecified; I12.9 Hypertensive chronic kidney disease with stage 1 through stage 4 chronic kidney disease, or unspecified chronic kidney disease; K59.00 Constipation, unspecified; N18.3 Chronic kidney disease, stage 3 (moderate); M19.90 Unspecified osteoarthritis, unspecified site; D63.8 Anemia in other chronic diseases classified elsewhere; Z87.81 Personal history of (healed) traumatic fracture; Z68.22 Body mass index [BMI] 22.0-22.9, adult; Z79.82 Long term (current) use of aspirin; Z79.899 Other long term (current) drug therapy
CPT/HCPCS: 10084; 27000; 50010; 50101; 50386; 50403; 62110; 62900; 70005

== ENCOUNTER 2018-09-29 14:41 | Inpatient (IN) | payer OTHER ==
[~2018-09-29] VITALS: Ht 152.4 cm; Wt 65.8 kg
[~2018-09-29 14:41] MED LIST changes: +DAKIN'S473 M2 TOP; +KEFLEX500 M1 PO; +LINEZOLID600 MG PO; +MACROBID 100 M100 MG PO; +METOPROLOL TART25 MG PO; +REMERON15 MG PO; +ZYVOX600 MG/300 IV
[2018-09-29] MEDS ORDERED: BISACODYL SUPP10 MG RECTAL (16:12)
[2018-09-29] MEDS ORDERED: NORCO 5-325 TA1 EACH PO (16:13)
[2018-09-29] MEDS ORDERED: FLONASE 0.05%50 MCG NASAL (16:23)
[2018-09-29 16:35] VITALS: BP 123/41
[2018-09-29 17:23] LABS: INR 1.1; PROTIME 11.8 Seconds (9.3-11.4)
[2018-09-29 17:24] LABS: BASOPHILS 0.6 % (0.0-2.0); EOSINOPHILS 0.9 % (0.0-3.0); HEMOGLOBIN 6.7 gm/dL (12.0-15.0); LYMPHOCYTES 23.7 % (24.0-44.0); MCH 27.3 pg (26.0-34.0); MCHC 33.3 g/dL (28.0-37.0); MCV 82.2 fL (80.0-100.0); MONOCYTES 4.7 % (1.0-8.0); PLATELET COUNT 267 thou/uL (150-400); POLYS 70.1 % (36.0-66.0); RBC 2.43 mil/uL (4.20-5.00); RDW 19.2 % (10.5-14.5); WBC 4.3 thou/uL (4.0-11.0)
[2018-09-29 17:26] LABS: ALBUMIN 2.5 g/dL (3.4-5.0); CALCIUM 8.6 mg/dL (8.5-10.1); MAGNESIUM 1.8 mg/dL (1.8-2.4); POTASSIUM 4.2 mmol/L (3.5-5.1); TOTAL BILIRUBIN 0.4 mg/dL (<0.1-1.0); TOTAL PROTEIN 6.1 g/dL (6.4-8.2)
[2018-09-29 18:58] VITALS: BP 127/43
--- NOTE | 2018-09-29 19:24 | NUR ---
PT ARRIVED ON UNIT LATE THIS AFTERNOON FROM [facility]. PT HX, ASSESSMENT, EDUCATION AND MED REC COMPLETE. ORDERS IMPLEMENTED. FAMILY AT BEDSIDE. PT RESTING COMFORTABLY.
[2018-09-29 20:24] VITALS: BP 121/53; BP 127/55
[2018-09-30 03:05] VITALS: BP 132/72
[2018-09-30 04:04] VITALS: BP 141/52
--- NOTE | 2018-09-30 06:39 | NUR ---
Assumed care at 1845. Pt resting in bed. Dressing on right hip got soiled. Applied wet and dry dressing. Took pictures and collected a wound culture. Pt has been NPO since midnight for possible Peg tube placement. No identified needs at the moment. Will continue to monitor.
[2018-09-30 06:57] VITALS: BP 129/61
--- NOTE | 2018-09-30 09:31 | NUR ---
If PEG placed, recommend Pivot 1.5 goal of 55ml/hr with 165ml water flush every 6 hr.
--- NOTE | 2018-09-30 11:01 | NUR ---
madisyn sent updates to [facility], per Lani/admissions at [facility] request. DP informed Lani to expect them.
--- NOTE | 2018-09-30 13:04 | NUR ---
WOUND CONSULT: PT. WAS SEEN TODAY BY DR. ORELLANA AND MYSELF. PT. IS WELL KNOWN TO THE WOUND CARE TEAM. PT. HAS A RESOLVING STAGE 4 PRESSURE ULCER TO HER RIGHT GREATER TROCANTER. WOUND IS HEALTHY IN APPEARENCE AT THIS TIME. PT. HAS EXCORIATION TO HER ANTONIO-AREA. RECOMMENDATIONS: WOUND CARE TO ANTONIO-AREA: GENTLY CLEANSE AREA WITH WOUND CLEANSER OR NORMAL SALINE, APPLY ANTIFUNGAL CREAM TO AFFECTECTED AREAS, LEAVE OPEN TO AIR, COMPLETE CARES DAILY AND PRN. WOUND CARE TO RIGHT GREATER TROCHANTER: GENTLY CLEANSE AREA WITH WOUND CLEANSER OR NORMAL SALINE, PACK WITH DAKIN MOIST KERLIX, COVER WITH ABD, SECURE WITH TAPE, COMPLETE CARES DAILY. TURN Q2 HOURS KEEP PT. OFF WOUNDS MUCH POSSIBLE KEEP ON ALTA MATRESS. PT. AND STAFF NURSE WERE INSTRUCTED ON PLAN OF CARE.
[2018-09-30 14:48] VITALS: BP 142/43
--- NOTE | 2018-09-30 14:49 | NUR ---
PT ADMITTED RELATED TO HG 6.4. CM REVIEWED CHART AND SPOKE WITH CARE TEAM. 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 SHE INDICATED THAT SHE ANTICPATES PT RETURNING THERE ONCE MEDICALLY STABLE. PT IS HERE FOR PEG TUBE PLACEMENT. PT USED A WHEELCHAIR AT THE FACILITY MENTAL HEALTH COUNSELOR. CM TO FOLLOW INDICATED WITH DC PLANNING.
--- NOTE | 2018-09-30 19:38 | NUR ---
ALERT TO SELF, VSS, WOUND CARE COMPLETED FOR RIGHT HIP AND ABHIJIT AREA. SEEN BY GI TODAY WILL HAVE PEG TUBE PLACE TOMORROW MORNING DPOA SPOKE WITH GI AND AGREEABLE TO PEG TUBE. TURN Q2H. INCONTINENT BLADDER, NO BM TODAY. TOOK MEDS WHOLE WITH DAUGHTER BEDSIDE. DIET MECHANICAL SOFT DIET. FALL PRECAUTIONS IN PLACE. CALL LIGHT IN REACH. STAFF TO ANTICIPATE NEEDS PT DOES NOT CALL OUT NOR USE CALL LIGHT.
[2018-09-30 19:48] VITALS: BP 119/59
--- NOTE | 2018-10-01 02:53 | NUR ---
PATIENT AOX1 CONFUSED AND FORGETFUL. PATIENT HAS A WOUND ON RIGHT HIP DRESSING IS C/D/I. PATIENT HAS REDNESS ON PERIAREA AREA LOTA. PATIENT HAS BEEN NPO SINCE MIDNIGHT.PATIENT HAS NO S/S OF PAIN OR DISCOMFORT THIS SHIFT. PATIENT ON ISOLATION FOR MRSA ON RIGHT HIP WOUND. FAMILY WAS AT BEDSIDE DURING SHIFT CHANGE. PATIENT IN BED ASLEEP AT THIS TIME BREATHING REGULAR AND UNLABOURED.
[2018-10-01 04:10] VITALS: BP 131/78
[2018-10-01 07:37] VITALS: BP 128/58
--- NOTE | 2018-10-01 08:28 | HC ---
[facility] [place] [address] CONSULTATION Name: MADAI VANCE Room #: 452-P ADM IN M.R.#: [id number] Admission: 09/29/18 Attend Phys: Tylor Jasmine MD Discharge: Date of : 35 Report #: [id number] THIS REPORT FOR: //name// CC: Tylor Jasmine Kaitlynn Baldwin DATE OF SERVICE: 09/30/2018 CHIEF COMPLAINT: Stage 4 pressure ulcer of the right greater trochanter. HISTORY OF PRESENT ILLNESS: This is an 83-year-old female patient with whom I am familiar with advanced dementia. She has had a chronic ulceration to her right hip. She has undergone previous surgical debridement. She has been managed with a wound VAC in the group home facility. She has been readmitted from [facility] for feeding tube placement as she has had a very poor appetite and they have been having difficulty getting her to keep up on protein intake. She is not able to find any specific information about herself at this time. PAST MEDICAL HISTORY: Positive for history of the right hip pressure ulceration, history of anemia, dementia, elevated cholesterol, previous left hip fracture. SOCIAL HISTORY: Negative for alcohol or tobacco. She lives in a nursing care facility. MEDICATIONS: Include acetaminophen, alprazolam, amiodarone, polyethylene glycol, metoprolol, linezolid, Flonase, Singulair, Centrum, and Ventolin. ALLERGIES: None. FAMILY HISTORY: Noncontributory. REVIEW OF SYSTEMS: Not obtainable due to the patient's dementia. PHYSICAL EXAMINATION: VITAL SIGNS: At this time include pulse 67, respiratory rate 17, blood pressure 142/43, temperature 98.6. GENERAL: This is a chronically ill-appearing female patient who appears to be in minimal distress. HEENT: Head normocephalic. Nose and throat clear. NECK: Supple. LUNGS: Clear. ABDOMEN: Soft. EXTREMITIES: Demonstrate a stage 4 pressure ulcer on the right greater trochanter. It is clean, healthy, granulating, not appear to be infected. [facility] [address] [place] [address] CONSULTATION Name: MADAI VANCE Room #: 452-P [facility] IN M.R.#: [id number] Admission: 09/29/18 Attend Phys: Tylor Jasmine MD Discharge: Date of : 35 Report #: [id number] Lower extremities demonstrate good capillary refill, some residual dry skin on her left heel, but no open ulcerations. NEUROLOGIC: The patient is alert and symmetrical. LABORATORY DATA: Includes sodium 132, potassium 4.2, chloride 98, CO2 24, BUN 12, creatinine 1.0, glucose of 85, calcium is 8.6, total protein 6.1, albumin is 2.5. CLINICAL IMPRESSION: 1. Stage 4 pressure ulcer on the right greater trochanter, status post previous surgical debridement, now appearing clean and granulating. 2. Previous pressure ulceration to the left heel, which is now closed. 3. Advanced dementia. 4. Moderate protein-calorie malnutrition with poor oral intake. RECOMMENDATIONS: At this point in time, likely she will have consultation for placement of percutaneous feeding tube. We will recommend Dakin's moist gauze dressing. She will likely be here for just a very short period of time, then resume wound VAC once back at the skilled facility. If she ends up staying longer, we will initiate wound VAC therapy while here. She will need low air loss mattress, q. 2 hour turning and positioning, and PRAFO boots for pressure prophylaxis. I appreciate being asked to see her in consultation. <ELECTRONICALLY SIGNED> By: Paramjit Davies MD 10/01/18 0828 1859 0125 Paramjit Davies MD /nt
[2018-10-01 11:41] VITALS: BP 144/59
[2018-10-01 12:22] LABS: HEMATOCRIT 23.2 % (37.0-47.0); HEMOGLOBIN 7.9 gm/dL (12.0-15.0); MCH 27.7 pg (26.0-34.0); MCHC 33.8 g/dL (28.0-37.0); MCV 81.8 fL (80.0-100.0); RBC 2.84 mil/uL (4.20-5.00); RDW 18.1 % (10.5-14.5); WBC 4.7 thou/uL (4.0-11.0)
[2018-10-01 14:45] VITALS: BP 146/61
--- NOTE | 2018-10-01 15:30 | HC ---
[facility] [place] [address] CONSULTATION Name: MADAI VANCE Room #: 452-P ADM IN M.R.#: [id number] Admission: 09/29/18 Attend Phys: Tylor Jasmine MD Discharge: Date of : 35 Report #: [id number] THIS REPORT FOR: //name// CC: Tylor Calderón Nicolasa DATE OF SERVICE: 09/30/2018 REASON FOR CONSULTATION: I was asked to evaluate concerning right hip osteomyelitis. HISTORY OF PRESENT ILLNESS: The patient is an 83-year-old seen previously 08/29/2018 where she was diagnosed with a right hip wound. CT scan showed cortical destruction of the greater trochanter. Cultures revealed E. coli and Enterococcus. The previous month, she had grown E. coli, Enterococcus and MRSA. She has been treated with prolonged course of antibiotic therapy. Following her discharge from August, she was on Zyvox and cephalexin. The patient returns now with failure to thrive. No fever, chills or sweats. Poor oral intake. Planning to get a PEG tube. Recommendations now were for ongoing antibiotic therapy. She is now on Zyvox. No fever, chills or sweats. The patient is unable to give any details for she has underlying dementia and confused. REVIEW OF SYSTEMS: Unable to complete 10-point review due to patient's mental status. She does have a left upper extremity PICC in place. PAST MEDICAL HISTORY: Hypertension, hyperlipidemia, dementia, atrial fibrillation, allergic rhinitis, left hip fracture with repair, bradycardia, anemia and blood transfusion. FAMILY HISTORY: Noncontributory. SOCIAL HISTORY: Nonsmoker, no significant alcohol intake. ALLERGIES: None. MEDICATIONS: As noted on her MAR including Zyvox. PHYSICAL EXAMINATION: VITAL SIGNS: Afebrile and hemodynamically stable. Alert, yet not cooperative with the examination. EYES: Without conjunctivitis. MOUTH: Without lesion. NECK: Supple. LUNGS: Clear. [facility] [address] [place] [address] CONSULTATION Name: MADAI VANCE Room #: 452-P [facility] IN [facility].#: [id number] Admission: 09/29/18 Attend Phys: Tylor Jasmine MD Discharge: Date of : 35 Report #: [id number] HEART: Regular, without murmur. ABDOMEN: Soft and nontender. EXTREMITIES: The right hip wound was large over the greater trochanter with granulation tissue formation. There was moderate amount of serous drainage. No purulence. No surrounding erythema. No odor to the drainage. No other skin lesions identified. No palpable adenopathy. Cranial nerves appeared intact. She was able to move all extremities, but was generalized weak and resisted turning. LABORATORY STUDIES: Hemoglobin 6.7, platelet count 267,000, white count 4.3, 70% segs, 23% lymphs. Sodium 132, potassium 4.2, bicarbonate 24, creatinine 1. Liver function test normal. Chest x-ray, no infiltrates, left upper extremity PICC. Culture from 09/30/2018 currently pending. 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 Failure to thrive. Poor oral intake, still unclear if this is due to dementia or Zyvox. Underlying dementia. RECOMMENDATION: We will continue with Zosyn to cover the Enterococcus and E. coli, which were the predominant organisms identified this past month. See if she does better off Zyvox as far as her oral intake. Await repeat cultures. Follow up sedimentation rate, and x-ray of the hip. Await PEG tube placement. <ELECTRONICALLY SIGNED> By: Douglas Molina MD 10/01/18 1530 28 0255 Douglas Molina MD /nt
--- NOTE | 2018-10-01 16:04 | NUR ---
PT HAD PEG TUBE PLACED THIS DAY. CM TO FOLLOW INDICATED WITH DC PLANNING.
--- NOTE | 2018-10-01 20:21 | NUR ---
Pt was NPO this am for her peg tube placement that was done early afternoon. VS stable, wound care done. Antifungal cream applied after pericare was done Blood glucose in the late aftrenoon came down to 64, D50 given. Endorsed to the night nurse for monitoring. PEG tube feeding to commence anthony.
[2018-10-01 21:00] VITALS: BP 132/53
[2018-10-02 03:12] VITALS: BP 142/51
--- NOTE | 2018-10-02 05:23 | NUR ---
ASSUMED CARE AT 1900. PT FAMILY AT BEDSIDE. PT HAS A G TUBE THAT WILL RESUME TUBE FEEDING TODAY. UNABLE TO ASSESS ORIENTATION ONLY ORIENTED TO SELF AT THIS TIME BG 2100 WAS 75. RECHECKED AT DAWM WAS 83. WILL KEEP MONITORING PATIENT. DRESSING ON THE RIGHT HIP CHANGED, AND PICTURES TAKEN . PT OTHERWISE DENIES PAIN, NAUSEA AND VOMITING. OTHER ASSESSMENTS DOCUMENTED. WILL KEEP FOLLOW POC.
[2018-10-02 08:48] VITALS: BP 141/52
--- NOTE | 2018-10-02 09:18 | P ---
[facility] [place] [address] PROCEDURE REPORT Name: MADAI VANCE Room #: 452-P ADM IN M.R.#: [id number] Admission: 09/29/18 Attend Phys: Tylor Jasmine MD Discharge: Date of : 35 Report #: [id number] THIS REPORT FOR: //name// CC: Tylor Baldwin DO Kaitlynn Baldwin DATE OF SERVICE: 10/01/2018 PROCEDURE: EGD with PEG tube insertion. Patient of Dr. Kaitlynn Baldwin and Dr. Tylor Jasmine. INDICATION FOR PROCEDURE: This patient has not eaten for the last month. She is becoming increasingly weak. She is having problems with wound healing and her family has requested feeding tube placement to improve her nutrition and her healing capability with better dietary intake. The patient is agreeable with this plan apparently. Informed consent for this procedure was obtained prior to the administration of any medication. The risks which include the following, but are not limited to only the following, include bleeding, perforation, infection, complications of sedation and the possibility I could miss something, have been explained to the patient. Her daughter has indicated her consent for the patient to have the PEG tube placed. The patient is on Zosyn at this time and I do not think any further antibiotic coverage is needed for this PEG tube insertion. DESCRIPTION OF PROCEDURE: With the patient in the left lateral decubitus position, the Olympus upper videoscope was introduced through the upper esophageal sphincter and advanced under direct visualization to the third portion of the duodenum. Findings are noted on withdrawal of the scope. The duodenal mucosa appeared normal throughout its entirety. Pylorus, normal mucosa. 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 Body, normal mucosa. Cardia and fundus, normal mucosa. Retroflexed view did not reveal any other abnormalities. The scope was withdrawn to the esophagus. The Z-line was appropriately located at the epigastric folds and appears normal. The esophageal mucosa appeared normal throughout its entirety. The scope was advanced then into the stomach again and appropriate site on the anterior antral wall was localized. The anterior abdominal wall was sterilely prepped and draped and 4 mL of 1% lidocaine was used as a local anesthetic. A 1-cm incision was made with a scalpel and then a trocar was introduced through this incision through the rest of the anterior abdominal wall, anterior gastric wall and into [address] [address] PROCEDURE REPORT Name: MADAI VANCE Room #: 452-P [facility] IN [facility].#: [id number] Admission: 09/29/18 Attend Phys: Tylor Jasmine MD Discharge: Date of : 35 Report #: [id number] the gastric lumen. Then, a guidewire was advanced through the trocar and grasped endoscopically with a snare and pulled up through the patient's mouth. The trocar was removed. The wire remained in place. A #20 Pull PEG was then tied on to the guidewire and the Pull PEG was then pulled down through the patient's mouth, esophagus and stomach, out through the anterior gastric and anterior abdominal wall until it was anchored into position. Then, the Olympus upper videoscope was re-introduced through the upper esophageal sphincter and advanced again down to the stomach, where the internal PEG bumper was seen in proper position. There was minimal blood loss, less than 5 mL for this procedure. The scope was then withdrawn. The patient went to the recovery area in stable condition. She tolerated the procedure well. IMPRESSION: 1. 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 2. Successful placement of a #20 Pull PEG, as above. RECOMMENDATIONS: Recommendations are for her to keep the head of the bed up 30 degrees at all times during feedings. We can start tube feedings tomorrow if her bowel sounds are positive. It is okay to use the PEG tube for medication administration tonight if necessary. I would recommend Dietary be consulted and that their recommendations be followed as far as tube feeding specifics and water flushes. Thank you very much once again for allowing me to participate in her care, Dr. Baldwin and Dr. Jasmine. <ELECTRONICALLY SIGNED> By: Katherine Becerra DO 10/02/18 0918 [id number] Katherine Becerra DO /nt
[2018-10-02 09:26] VITALS: BP 141/52
[2018-10-02] MEDS ORDERED: ACIDOPHILUS1 EAC4 PO (10:25)
[2018-10-02] MEDS ORDERED: DAKIN'S473 M2 IRRIG (10:25)
--- NOTE | 2018-10-02 12:13 | NUR ---
DISCHARGE PLANNING. ANTICIPATED DISCHARGE TODAY TO [facility], SKILLED UNIT. INSURANCE AUTH PENDING. CHART COPY TO BE COMPLETED PER NOODLE [employer] MAKER. DISCHARGE ORDERS, DISCHARGE SUMMARY, PROGRESS NOTES, AND TUBE FEEEDING ORDERS FAXED TO [facility] ADMISSIONS, VERIFIED RECEIVED. MAHENDRA TO NOTIFY CM ONCE INSURANCE AUTH OBTAINED. WILL FACILITATE TRANPORTATION AT THAT TIME. UNIT CM/SW AWARE.
--- NOTE | 2018-10-02 15:03 | NUR ---
TUBE FEEDING IS TO BE STARTED THIS DAY. CARE TEAM INDICATED THAT LONG PT TOLERATES TUBE FEEDING THAT SHE WILL BE MEDICALLY STABLE TO DISCHARGE BACK TO [facility]. CM SPOKE WITH MAHENDRA IN ADMISSIONS AND THEY INDICATED THEY WOULD BRING PT BACK THIS DAY AND SEEK AUTH FOR IV ABX AND NEW TUBE FEEDING. DC [employer]IC [employer]MISTRY PROFESSOR ARRANGED TRANSPORT FOR 1530 THIS DAY VIA [employer] VAN. CHART COPY MADE AND ORDERS FAXED. REPORT HAS BEEN CALLED. PT AND FAMILY DTR/DPOA ARE AWARE. NO OTHER CM INTERVENTIN INDICATED. CASE CLOSED.
== END 2018-10-02 16:16 | DRG 539 ==
LOC: 4W 14:41
PROVIDERS: Anesthesiology; Nurse Practitioner; ADMIT Hospitalist
DX: M46.28 Osteomyelitis of vertebra, sacral and sacrococcygeal region (principal); L89.214 Pressure ulcer of right hip, stage 4; E44.0 Moderate protein-calorie malnutrition; D62 Acute posthemorrhagic anemia; K55.20 Angiodysplasia of colon without hemorrhage; R62.7 Adult failure to thrive; I10 Essential (primary) hypertension; F03.90 Unspecified dementia, unspecified severity, without behavioral disturbance, psychotic disturbance, mood disturbance, and anxiety; E78.5 Hyperlipidemia, unspecified; I48.91 Unspecified atrial fibrillation; E78.00 Pure hypercholesterolemia, unspecified; I48.2 Chronic atrial fibrillation; D64.9 Anemia, unspecified; K59.00 Constipation, unspecified; Z87.81 Personal history of (healed) traumatic fracture; Z68.28 Body mass index [BMI] 28.0-28.9, adult; Q27.33 Arteriovenous malformation of digestive system vessel
CPT/HCPCS: 10045; 10047; 62110; 62900; 70005

== ENCOUNTER 2018-11-13 05:05 | Emergency (ER) | payer OTHER ==
[~2018-11-13] VITALS: Ht 160 cm; Wt 52.2 kg
[~2018-11-13 05:05] MED LIST changes: +ACIDOPHILUS1 EAC4 PO; +BISACODYL SUPP10 MG RECTAL; +DAKIN'S473 M2 IRRIG; +FLONASE 0.05%50 MCG NASAL; +NORCO 5-325 TA1 EACH PO
[2018-11-13 07:27] VITALS: BP 137/53
== END 2018-11-13 07:27 ==
LOC: ER 05:05
DX: K94.23 Gastrostomy malfunction (principal); I10 Essential (primary) hypertension; E78.00 Pure hypercholesterolemia, unspecified; F03.90 Unspecified dementia, unspecified severity, without behavioral disturbance, psychotic disturbance, mood disturbance, and anxiety; I48.91 Unspecified atrial fibrillation; Y84.9 Medical procedure, unspecified as the cause of abnormal reaction of the patient, or of later complication, without mention of misadventure at the time of the procedure

== ENCOUNTER 2018-11-13 21:43 | Emergency (ER) | payer OTHER ==
[~2018-11-13] VITALS: Ht 160 cm; Wt 52.2 kg
[2018-11-14 00:11] VITALS: BP 98/43
== END 2018-11-14 00:11 ==
LOC: ER 21:43
DX: K94.23 Gastrostomy malfunction (principal); I10 Essential (primary) hypertension; E78.00 Pure hypercholesterolemia, unspecified; F03.90 Unspecified dementia, unspecified severity, without behavioral disturbance, psychotic disturbance, mood disturbance, and anxiety; I48.0 Paroxysmal atrial fibrillation; Z86.2 Personal history of diseases of the blood and blood-forming organs and certain disorders involving the immune mechanism

== ENCOUNTER 2018-11-14 12:34 | Emergency (ER) | payer OTHER ==
[~2018-11-14] VITALS: Ht 160 cm; Wt 56.7 kg
[2018-11-14 17:36] VITALS: BP 134/65
== END 2018-11-14 17:36 ==
LOC: ER 12:34
DX: K94.23 Gastrostomy malfunction (principal); I10 Essential (primary) hypertension; E78.00 Pure hypercholesterolemia, unspecified; F03.90 Unspecified dementia, unspecified severity, without behavioral disturbance, psychotic disturbance, mood disturbance, and anxiety; I48.0 Paroxysmal atrial fibrillation; Z86.2 Personal history of diseases of the blood and blood-forming organs and certain disorders involving the immune mechanism

== ENCOUNTER 2019-03-28 10:35 | Emergency (ER) | payer OTHER ==
[~2019-03-28] VITALS: Ht 170.2 cm; Wt 86.2 kg
[~2019-03-28 10:35] MED LIST changes: +METOPROLOL TART25 MG PER TUBE; -METOPROLOL TART25 MG PO; +PACERONE 200 M200 M1 PER TUBE; +TYLENOL325 MG PER TUBE; -TYLENOL325 MG PO; +XANAX 0.25 MG0.25 MG PER TUBE; -XANAX 0.25 MG0.25 MG PO
--- NOTE | 2019-03-28 11:06 | EKG ---
[place] [address] [facility] [place] [address] ELECTROCARDIOGRAM REPORT Name: MADAI VANCE Room #: REG [facility]#: [id number] Admission: 03/28/19 Attend Phys: Discharge: Date of : 35 Report #: [id number] THIS REPORT FOR: //name// [facility] ED Test Date: 2019-03-28 Test Time: 10:51:03 Pat Name: MADAI VANCE Department: Room: Gender: F Director Of Dance: CORBY : 1935 Requested By: Estevan Barnes Order Number: [id number] MD: Raciel Acevedo Measurements Intervals [place] Rate: 49 P: -21 WY: 176 QRS: -41 QRSD: 106 T: 180 QT: 486 QTc: 439 Interpretive Statements Sinus bradycardia Left axis deviation Nonspecific T abnormalities, lateral leads Compared to ECG 05/15/2018 16:57:47 Left-axis deviation now present Electronically Signed On 03-28-2019 11:06:00 CDT by Raciel Acevedo [email or web address] <ELECTRONICALLY SIGNED> By: Raciel Acevedo MD 03/28/19 1106 1051 1051 MD DOT Lopez
[2019-03-28 11:07] LABS: ABSOLUTE NEUTROPHILS 4.5 thou/uL (1.4-8.2); BASOPHILS 0.5 % (0.0-2.0); EOSINOPHILS 2.2 % (0.0-3.0); HEMATOCRIT 32.9 % (37.0-47.0); HEMOGLOBIN 11.3 gm/dL (12.0-15.0); LYMPHOCYTES 14.3 % (24.0-44.0); MCH 31.6 pg (26.0-34.0); MCHC 34.4 g/dL (28.0-37.0); MCV 91.8 fL (80.0-100.0); MONOCYTES 9.9 % (1.0-8.0); PLATELET COUNT 172 thou/uL (150-400); POLYS 73.1 % (36.0-66.0); RBC 3.58 mil/uL (4.20-5.00); RDW 15.4 % (10.5-14.5); WBC 6.2 thou/uL (4.0-11.0)
[2019-03-28 11:19] LABS: ANION GAP 5 mmol/L (7-16); BUN 48 mg/dL (7-18); CHLORIDE 102 mmol/L (98-107); CO2 27 mmol/L (21-32); GLUCOSE 124 mg/dL (74-106); POTASSIUM 4.6 mmol/L (3.5-5.1); SODIUM 134 mmol/L (136-145)
[2019-03-28 11:20] LABS: TROPONIN-I <0.06 ng/mL (<0.06)
[2019-03-28] MEDS ORDERED: FEXOFENADI30 MG/5 ML PER TUBE (12:05)
[2019-03-28] MEDS ORDERED: FERROUS SU220 MG/52 PER TUBE (12:06)
[2019-03-28] MEDS ORDERED: MELATONIN3 MG PER TUBE (12:07)
[2019-03-28] MEDS ORDERED: LOPERAMIDE 2 MG2 M1 PER TUBE (12:07)
[2019-03-28] MEDS ORDERED: TRANSDERM-SCOP1 EACH TRANSDERM (12:08)
[2019-03-28] MEDS ORDERED: VENTOLIN HFA 1818 GM INH (13:22)
[2019-03-28 15:00] VITALS: BP 179/71
== END 2019-03-28 15:05 | disposition home or self-care (01) ==
LOC: ER 10:35
PROVIDERS: Emergency Medicine
DX: J98.01 Acute bronchospasm (principal); I10 Essential (primary) hypertension; E78.00 Pure hypercholesterolemia, unspecified; F03.90 Unspecified dementia, unspecified severity, without behavioral disturbance, psychotic disturbance, mood disturbance, and anxiety; I48.91 Unspecified atrial fibrillation; Z86.2 Personal history of diseases of the blood and blood-forming organs and certain disorders involving the immune mechanism

== ENCOUNTER 2019-05-21 11:51 | Emergency (ER) | payer OTHER ==
[~2019-05-21] VITALS: Ht 157.5 cm; Wt 77.1 kg
[~2019-05-21 11:51] MED LIST changes: +FERROUS SU220 MG/52 PER TUBE; +FEXOFENADI30 MG/5 ML PER TUBE; +LOPERAMIDE 2 MG2 M1 PER TUBE; +MELATONIN3 MG PER TUBE; +TRANSDERM-SCOP1 EACH TRANSDERM
[2019-05-21 13:10] VITALS: BP 166/67
== END 2019-05-21 13:36 ==
LOC: ER 11:51
DX: K94.23 Gastrostomy malfunction (principal); I10 Essential (primary) hypertension; E78.00 Pure hypercholesterolemia, unspecified; I48.0 Paroxysmal atrial fibrillation; Z86.2 Personal history of diseases of the blood and blood-forming organs and certain disorders involving the immune mechanism; Z98.890 Other specified postprocedural states

== ENCOUNTER 2019-06-22 22:53 | Emergency (ER) | payer OTHER ==
[~2019-06-22] VITALS: Ht 167.6 cm; Wt 72.6 kg
[2019-06-23 01:17] VITALS: BP 150/67
== END 2019-06-23 01:26 ==
LOC: ER 22:53
DX: K94.23 Gastrostomy malfunction (principal); I10 Essential (primary) hypertension; E78.00 Pure hypercholesterolemia, unspecified; I48.0 Paroxysmal atrial fibrillation; Z86.2 Personal history of diseases of the blood and blood-forming organs and certain disorders involving the immune mechanism

== ENCOUNTER 2019-09-03 10:39 | Emergency (ER) | payer OTHER ==
[~2019-09-03] VITALS: Ht 165.1 cm; Wt 88.5 kg
[2019-09-03] MEDS ORDERED: FAMOTIDINE 20 M20 MG PO (11:00)
[2019-09-03] MEDS ORDERED: QUESTRAN PACKET4 GM PO (11:04)
[2019-09-03] MEDS ORDERED: CUVPOSA1 MG/5 ML PER TUBE (11:15)
[2019-09-03] MEDS ORDERED: ADULT WAL-100 MG/5 M PER TUBE (11:18)
[2019-09-03] MEDS ORDERED: MEMANTINE PER TUBE (11:21)
[2019-09-03 14:52] VITALS: BP 136/72
== END 2019-09-03 14:53 | disposition home or self-care (01) ==
LOC: ER 10:39
DX: Z93.1 Gastrostomy status (principal); I10 Essential (primary) hypertension; F03.90 Unspecified dementia, unspecified severity, without behavioral disturbance, psychotic disturbance, mood disturbance, and anxiety; E78.00 Pure hypercholesterolemia, unspecified

== ENCOUNTER 2019-10-05 21:14 | Emergency (ER) | payer OTHER ==
[~2019-10-05] VITALS: Ht 160 cm; Wt 77.1 kg
[~2019-10-05 21:14] MED LIST changes: +ADULT WAL-100 MG/5 M PER TUBE; +CUVPOSA1 MG/5 ML PER TUBE; +FAMOTIDINE 20 M20 MG PO; +MEMANTINE PER TUBE; +QUESTRAN PACKET4 GM PO
[2019-10-06 01:57] VITALS: BP 169/77
== END 2019-10-06 01:58 | disposition home or self-care (01) ==
LOC: ER 21:14
DX: K94.23 Gastrostomy malfunction (principal); I10 Essential (primary) hypertension; E78.00 Pure hypercholesterolemia, unspecified; I48.20 Chronic atrial fibrillation, unspecified

== ENCOUNTER 2020-03-13 22:16 | Inpatient (IN) | payer OTHER ==
[~2020-03-13] VITALS: Ht 165.1 cm; Wt 86.7 kg
[~2020-03-13 22:16] MED LIST changes: +CENTRUM SILVER1 EAC4 PER TUBE; -CENTRUM SILVER1 EAC4 PO; +FAMOTIDINE 20 M20 MG PER TUBE; -FAMOTIDINE 20 M20 MG PO; +QUESTRAN PACKET4 GM PER TUBE; -QUESTRAN PACKET4 GM PO; +SINGULAIR 10 MG10 M1 PER TUBE; -SINGULAIR 10 MG10 M1 PO
[2020-03-13 22:17] VITALS: BP 200/98
[2020-03-13 22:18] VITALS: BP 200/98
[2020-03-13] MEDS ORDERED: NEXIUM40 MG PER TUBE (22:46)
[2020-03-13] MEDS ORDERED: METOCLOPRAM5 MG/5 M3 PER TUBE (22:51)
[2020-03-13 23:03] LABS: ABSOLUTE NEUTROPHILS 7.1 thou/uL (1.4-8.2); BASOPHILS 0.3 % (0.0-2.0); HEMATOCRIT 38.3 % (37.0-47.0); HEMOGLOBIN 12.4 gm/dL (12.0-15.0); LYMPHOCYTES 8.5 % (24.0-44.0); MCH 30.9 pg (26.0-34.0); MCHC 32.3 g/dL (28.0-37.0); MCV 95.7 fL (80.0-100.0); MONOCYTES 5.5 % (1.0-8.0); PLATELET COUNT 230 thou/uL (150-400); POLYS 85.7 % (36.0-66.0); RDW 15.2 % (10.5-14.5); WBC 8.3 thou/uL (4.0-11.0)
[2020-03-13 23:14] LABS: CALCIUM 8.6 mg/dL (8.5-10.1); CREATININE 1.8 mg/dL (0.6-1.0); POTASSIUM 4.8 mmol/L (3.5-5.1)
[2020-03-13 23:18] LABS: ALBUMIN 2.6 g/dL (3.4-5.0); DIRECT BILIRUBIN 0.4 mg/dL (<0.1-0.2); TOTAL BILIRUBIN 1.1 mg/dL (0.2-1.0)
[2020-03-13 23:45] LABS: URINE BILIRUBIN 1+ (Negative); URINE BLOOD 3+ (Negative); URINE CLARITY CLOUDY; URINE COLOR YELLOW; URINE GLUCOSE-RANDOM* NEGATIVE (Negative); URINE KETONES TRACE (Negative); URINE NITRITE-REFLEX NEGATIVE (Negative); URINE PROTEIN (DIPSTICK) 3+ (Negative)
[2020-03-13 23:50] LABS: ICTOTEST (BILI CONFIRMATORY) Positive (Negative); URINE LEUKOCYTES-REFLEX 3+ (Negative)
[2020-03-14] VITALS (73 sets, daily range): BP systolic 77–150; BP diastolic 43–83
[2020-03-14 00:18] LABS: CASTS None Seen /LPF (None Seen); MUCUS 4-6 Moderate strn/LPF (None Seen); SQUAMOUS None Seen /LPF (0-3); URINE WBC-REFLEX >25 Many /HPF (0-5)
[2020-03-14 00:19] LABS: AMORPHOUS PHOSPHATES Many /LPF (None Seen); BACTERIA-REFLEX >30 Many /HPF (None Seen); CRYSTALS None Seen /LPF (None Seen); URINE RBC >20 Many /HPF (0-2)
[2020-03-14 02:47] LABS: BE(vivo) -3.2 mmol/L (-2 to +3); HCO3 20.9 mmol/L (22.0-26.0); PCO2 34.5 mmHg (35.0-45.0); PO2 80.1 mmHg (80.0-100.0); pH 7.401 (7.360-7.450)
--- NOTE | 2020-03-14 08:40 | NUR ---
PT ARRIVED FROM ER AT 0120. PT STABILIZED ORDERED ACKNOWLEDGED AND IMPLEMENTED, MEDS GIVEN AND ASSESSMENTS ARE CHARTED. PT ARRIVED FROM ER IN CONTROLLED AFIB, INTUBATED AND ON PROPOFOL AT 12MCG. PT BECAME HYPOTENSIVE, ROSETTA MCCORMACK STOPPED PROPOFOL INFUSION AND ORDERED VERSED GTT AND LEVOPHED. ORDERED IMPLEMENTED CHARTED. PT HAD A FEVER OF 101.0 ICE BAGS APPLIED TO PT'S UNDERARM, AND GROIN, INTERVENTION SUCCESFFUL PT'S MOST RECENT TEMP WAS 97.4 AXILARY. PT U/O FROM 0130 TILL 6AM WAS 100MLS TOTAL. TENNILLE MCCORMACK NOTIFIED, NO NEW ORDERS GIVEN PT WAS ALREADY ON IVF. PT IS STABLE FOR NOW, WILL CONTINUE TO CLOSELY MONITOR
--- NOTE | 2020-03-14 09:52 | NUR ---
RD TUBE FEEDING RECOMMENDATIONS: 1) As [facility] does not carry Jevity 1.2 on formulary, would recommend change to Jevity 1.5 for similar fiber containing formula as pt's jail regimen. NEW GOAL RATE FOR JEVITY 1.5: *If pt not being proned and TF able to run ~24 hrs/day, REC goal 50 ml/hr. *If proning to start, REC goal rate of 60 ml/hr if TFs off ~4 hrs/day. *If longer proning for estimated 8 hrs/day, REC goal rate of 70 ml/hr. Average rate provides 1171-9233 kcals and 72-76 g protein, which meets 25 kcals/kg for energy needs and provides 1-1.3 g/kg protein.
--- NOTE | 2020-03-14 12:42 | NUR ---
CONSULTED TO PLACE A CENTRAL LINE FOR A PATIENT ADMITTED TO THE ICU + COVID PT INTUBATED- CONSENT AND ORDER NOTED. A #6F TRIPLE LUMEN POWER INJECTABLE CENTRAL LINE WAS PLACED PER HOSPITAL POLICY AFTER A BEDSIDE TIMEOUT WAS COMPLETED. LINE WAS 25CM AND ADVANCED WITHOUT DIFFICULTY. A STAT CHEST XRAY CONFIRMED LINE IN GOOD POSITION FOR USE
--- NOTE | 2020-03-14 13:31 | NUR ---
[place] [facility] [place] SPOKE WITH MAHENDRA IN ADM SHE RECEIVED UPDATE. DP TO FOLLOW.
--- NOTE | 2020-03-14 14:55 | NUR ---
PT ADMITTED RELATED TO COVID 19+, RESP FAILURE, SEVEER SEPSIS, ARIA. CM REVIEWED CHART AND SPOKE WITH CARE TEAM. PT WAS INTUBATED LAST EVENING AND IS ON 40% VENT. PT HAS A PEG AND HAD BEEN RECIEVING TUBE FEEDING FILM LIBRARY CLERK. CM CALLED AND SPOKE WITH PT'S DTR PERCY [place] THIS DAY. SHE INDICATED THAT PT IS AN LTC RESIDE OVER AT THE [facility]. SHE INDICATED THAT PT HAS HX OF DEMENTIA AND THAT SHE HAD USED A WC TO ASSIST WITH MOBILITY FILM LIBRARY CLERK. SHE INDICATED THAT THEY HOPED THAT PT WOULD PREGRESS TO BE ABLE TO RETURN TO THE [facility]. CLINICAL UPDATE SENT TO FACILITY. CM TO FOLLOW INDICATED WITH DC PLANNING.
--- NOTE | 2020-03-14 20:06 | NUR ---
PT REMAINS ON VENT 40% TODAY. O2 SATS STABLE. TUBE FEEDING INFUSING. HIGH RESIDUALS SO IT REMAINS AT 20ML/HR. WATER FLUSHES ORDERED 400ML Q6H. WATER FLUSH HELD AT 1800 FOR HIGH RESIDUAL. TEMP LOW. JAMAR BERG APPLIED AND DR JAY NOTIFIED. TEMP IMPROVING. REMAINS SEDATED WITH VERSED. TITRATING LEVO TO KEEP MAP >65. DR LOZANO HERE THIS AFTERNOON. DISCUSSED CONVALESCENT PLASMA STUDY. CALLED AND DISCUSSED WITH PT'S DAUGHTER/DPOA AND CONSENT OBTAINED. TYPE AND CROSS DRAWN. CALLED AND UPDATED PT'S DAUGHTER JANIE MULTIPLE TIMES TODAY.
[2020-03-15] VITALS (44 sets, daily range): BP systolic 96–159; BP diastolic 42–81
[2020-03-15 04:19] LABS: HCO3 19.9 mmol/L (22.0-26.0); PCO2 32.2 mmHg (35.0-45.0); PO2 77.2 mmHg (80.0-100.0); pH 7.408 (7.360-7.450); sO2 95.7 % (92.0-98.0)
[2020-03-15 06:34] LABS: HEMATOCRIT 29.7 % (37.0-47.0); MCH 31.4 pg (26.0-34.0); MCHC 32.9 g/dL (28.0-37.0); MCV 95.3 fL (80.0-100.0); RBC 3.11 mil/uL (4.20-5.00); WBC 9.8 thou/uL (4.0-11.0)
[2020-03-15 06:45] LABS: HEMOGLOBIN 9.8 gm/dL (12.0-15.0)
[2020-03-15 07:09] LABS: CALCIUM 7.5 mg/dL (8.5-10.1); CREATININE 1.6 mg/dL (0.6-1.0); MAGNESIUM 2.4 mg/dL (1.8-2.4); POTASSIUM 4.2 mmol/L (3.5-5.1)
[2020-03-15 09:45] LABS: ALBUMIN 2.2 g/dL (3.4-5.0); DIRECT BILIRUBIN 0.2 mg/dL (<0.1-0.2); TOTAL BILIRUBIN 0.7 mg/dL (0.2-1.0); TOTAL PROTEIN 6.3 g/dL (6.4-8.2)
--- NOTE | 2020-03-15 15:04 | NUR ---
ON-GOING ASSESSMENT: CM REVIEWED CHART. PT IS COVID POSITIVE AND REMAINS ON THE VENT WITH FIO2 40 PERCENT. REFERRAL WAS SENT YESTERDAY [place] [facility]IENT [place] AND FAMILY IS HOPEFUL SHE WILL PROGRESS TO BE ABLE TO RETURN THERE. PTS DAUGHTER PERCY CORRAL IS LISTED DPOA. CM WILL CONTINUE TO FOLLOW TO ASSIST NEEDED.
--- NOTE | 2020-03-15 16:52 | NUR ---
[facility]ED CLINICAL UPDATE [facility] SPOKE WITH MAHENDRA IN ADM SHE RECEIVED UPDATE AND WILL FOLLOW. DP TO FOLLOW.
--- NOTE | 2020-03-15 20:07 | NUR ---
ASSUMED CARE @ 0700 03/15/20, PT ASSESSMENTS AND VSS COMPLETE PER ICU PROTOCOL. PT ENCOUNTERED ON A VERSED GTT, SEDATION VACATION PERFORMED @ 0900, PT ABLE TO TOLERATE FAIRLY. SEDATION OFF AGAIN PRIOR CPAP TRIAL, CPAP PERFORMED @ 1557, PT LASTED FOR 30 MIN, RR IN THE 50'S, PT SWITCHED BACK TO A/C. PT BS IN 400'S, WILBERT CALLED, ORDERS RECIEVED AND EXECUTED. EFFIE CALLED X2, CODE VERIFIED AND UPDATED ABOUT PT'S STATUS.
[2020-03-16] VITALS (39 sets, daily range): BP systolic 102–188; BP diastolic 48–91
--- NOTE | 2020-03-16 09:09 | NUR ---
Severe hyperglyemia. Recommend change in tube feed formual to vital AF 1.2 at 65ml/hr. Rec discontinue D5 fluids and continue water flushes of 400ml every 6hr as hypernatremia has resolved.
--- NOTE | 2020-03-16 15:52 | NUR ---
ASSUMED PT. CARE AT 0700; PATIENT REMAINS INTUBATED AND SEDATED. SEDATION CHANGED FROM VERSED TO PRECEDEX. PATIENT TOLERATING WELL. PT IN UNCONTROLLED AFIB (115 - 13Os), DR. DICKSON NOTIFIED AND RESUMED ON HOME AMIODARONE AND METOPROLOL. D5 INFUSION DC'D AND TUBE FEEDS CHANGED TO VITAL A.F 1.2 DUE TO HIGH BG. PATIENT'S DAUGHTER (EFFIE) CALLED AND UPDATED ON STATUS AND POC. WILL CONTINUE TO MONITOR AND FOLLOW POC.
[2020-03-16 16:41] LABS: HEMATOCRIT 32.6 % (37.0-47.0); HEMOGLOBIN 10.9 gm/dL (12.0-15.0); MCH 30.6 pg (26.0-34.0); MCHC 33.3 g/dL (28.0-37.0); MCV 91.9 fL (80.0-100.0); RBC 3.54 mil/uL (4.20-5.00); RDW 14.1 % (10.5-14.5); WBC 13.1 thou/uL (4.0-11.0)
[2020-03-16 16:48] LABS: CALCIUM 8.3 mg/dL (8.5-10.1); CREATININE 1.3 mg/dL (0.6-1.0); POTASSIUM 4.2 mmol/L (3.5-5.1)
--- NOTE | 2020-03-16 20:16 | NUR ---
PATIENT CARES WERE ASSUMED AT 1845 ON 03/15. THIS PATIENT WAS ASSESSED AND MEDS WERE PASSED. PATIENT WAS TURNED EVERY 2Q HOURS. THIS PATIENT JEVITY WAS OFF FOR SEVERAL HOURS DUE TO FEED WAS NOT AVAILABLE. CALL MS WHALEY AFTER THE MIDNIGHT ACCU CHECK, INSULIN DOES WAS CHANGED TO THE VERY HIGH RANGE. THOUGHTS OF A POSSIBLE INSULIN GTT WAS APART OF THE CONVERSATION HOWEVER NOT GIVEN AN ORDER AT THIS TIME. THE PLAN IS TO WAIT AND WATCH FOR THE 0600 ACCU CHECK AND THEN THE DECISION WOULD BE MADE. PATIENT WAS GIVEN A BATH AND A COMPLETE LINE CHANGE. HOURLY ROUNDING DONE . PATIENT WAS KEPT COMFORTABLE. THIS PATIENT DID HAVE ONE BM THIS SHIFT.
[2020-03-17] VITALS (11 sets, daily range): BP systolic 131–176; BP diastolic 70–90
[2020-03-17 04:56] LABS: HEMOGLOBIN 10.7 gm/dL (12.0-15.0); MCH 30.3 pg (26.0-34.0); MCHC 32.3 g/dL (28.0-37.0); RBC 3.51 mil/uL (4.20-5.00); RDW 14.5 % (10.5-14.5); WBC 13.1 thou/uL (4.0-11.0)
[2020-03-17 05:08] LABS: CALCIUM 8.1 mg/dL (8.5-10.1); CREATININE 1.3 mg/dL (0.6-1.0); MAGNESIUM 2.3 mg/dL (1.8-2.4); POTASSIUM 4.5 mmol/L (3.5-5.1)
--- NOTE | 2020-03-17 05:36 | NUR ---
ASSESSMENT DOCUMENTED.PT BEEN RESTING IN NO ACUTE DISTRESS.REMAINS SEDATED,DOES NOT FOLLOW COMMANDS.WITHDRAWS WITH PAINFUL STIMULI. PERRL.REMAINS ON VENT.NO RESP DISTRESS AT THIS TIME.FEBRILE WITH TEMP OF 101.4 AXILLARY,TYLENOL GIVEN PER ORDERS.ON PRECEDEX TITRATED TO 1.4MCG/MIN DUE TO PT SHOWING RESTLESSNESS.TUBE FEEDING AT 55ML/HR.SA ON MONITOR.PRAFUL ZAPATA ADEQUATE UO.NO SIGNIFICANT CHANGES NOTED.WILL CONT TO MONITOR PER POC.
--- NOTE | 2020-03-17 16:02 | NUR ---
PATIENT REMAINS ON THE VENT, SEDATED ON PRECEDEX; DOES NOT F/C; PRECEDEX WEANED AND PLAN TO ATTEMPT BREATHING TRIAL. PATIENT'S SON (ABDIFATAH JONES) CALLED AND UPDATED ON STATUS AND POC. DTR (EFFIE GOMES) ALSO CALLED AND UPDATED ON POC. WILL CONT. TO FOLLOW POC.
[2020-03-18] VITALS (35 sets, daily range): BP systolic 122–185; BP diastolic 59–88
[2020-03-18 05:02] LABS: BE(vivo) 1.2 mmol/L (-2 to +3); HCO3 25.2 mmol/L (22.0-26.0); PCO2 38.1 mmHg (35.0-45.0); PO2 72.2 mmHg (80.0-100.0); pH 7.439 (7.360-7.450); sO2 95.1 % (92.0-98.0)
--- NOTE | 2020-03-18 06:00 | NUR ---
VSS REMAINS INTUBATED AND SEDATED WITH PRECEDEX GTT. HAD A VERY LARGE BROWN LIQUID STOOL EARLIER BATHED. FOLLOWS NO COMMANDS. 1000 CC UO THIS SHIFT. WILL CONT TO MONITOR.
[2020-03-18 06:39] LABS: HEMATOCRIT 31.5 % (37.0-47.0); HEMOGLOBIN 10.3 gm/dL (12.0-15.0); MCH 30.5 pg (26.0-34.0); MCHC 32.5 g/dL (28.0-37.0); MCV 93.7 fL (80.0-100.0); PLATELET COUNT 232 thou/uL (150-400); RBC 3.36 mil/uL (4.20-5.00); RDW 14.8 % (10.5-14.5); WBC 13.5 thou/uL (4.0-11.0)
[2020-03-18 07:08] LABS: ALBUMIN 1.9 g/dL (3.4-5.0); CALCIUM 8.1 mg/dL (8.5-10.1); POTASSIUM 3.8 mmol/L (3.5-5.1); TOTAL BILIRUBIN 0.5 mg/dL (0.2-1.0); TOTAL PROTEIN 6.6 g/dL (6.4-8.2)
--- NOTE | 2020-03-18 12:19 | NUR ---
ASSUMED CARE AT 0700, ASSESSMENT AND VITAL SIGNS COMPLETED PER ICU PROTOCOL. DR. JAY ROUNDED THIS AM, PLAN OF CARE DISCUSSED, RN WILL CONTINUE TO MONITOR. PT'S DAUGHTER CALLED RN FOR UPDATE, SECURITY CODE VERIFIED. RN PROVIDED UPDATE.
[2020-03-18 12:55] LABS: URINE BILIRUBIN NEGATIVE (Negative); URINE BLOOD 1+ (Negative); URINE CLARITY CLEAR; URINE COLOR YELLOW; URINE GLUCOSE-RANDOM* NEGATIVE (Negative); URINE KETONES NEGATIVE (Negative); URINE LEUKOCYTES-REFLEX TRACE (Negative); URINE NITRITE-REFLEX NEGATIVE (Negative); URINE PROTEIN (DIPSTICK) TRACE (Negative); URINE UROBILINOGEN 0.2 E.U./dl (0.2-1.0)
--- NOTE | 2020-03-18 13:22 | NUR ---
PT REMAINS SEDATED AND ON THE VENT FOR DAY NUMBER 4. PT IS RECIEVING IV ABX ZOSYN AND VANC. PT IS RECEIVED ENTERAL TUBE FEEDING. IT IS NOT ANTICIPATED THAT PT WILL BE MEDICALLY STABLE TO DISHCARGE OVER THE WEEKEND. CM FOLLOWING INDICATED WITH DC PLANNING.
[2020-03-18 14:28] LABS: BACTERIA-REFLEX None Seen /HPF (None Seen); CASTS None Seen /LPF (None Seen); CRYSTALS None Seen /LPF (None Seen); MUCUS 4-6 Moderate strn/LPF (None Seen); SQUAMOUS 0-3 Few /LPF (0-3); URINE RBC 0-2 Rare /HPF (0-2); URINE WBC-REFLEX 0-5 Rare /HPF (0-5)
[2020-03-18 14:46] LABS: ABSOLUTE NEUTROPHILS 12.6 thou/uL (1.4-8.2); ANISOCYTOSIS 1+; POLYCHROMASIA OCCASIONAL
--- NOTE | 2020-03-18 16:47 | NUR ---
P.T. REMAINS SEDATED ON VENT. REQUEST NEW P.T. ORDERS ONCE PT IS APPROPRIATE TO PARTICIPATE IN P.T. FUNCTIONAL MOBILITY EVAL.
[2020-03-19] VITALS (29 sets, daily range): BP systolic 107–178; BP diastolic 61–91
[2020-03-19 05:00] LABS: BE(vivo) 0.7 mmol/L (-2 to +3); HCO3 23.6 mmol/L (22.0-26.0); PCO2 32.2 mmHg (35.0-45.0); PO2 75.6 mmHg (80.0-100.0); pH 7.483 (7.360-7.450); sO2 96.2 % (92.0-98.0)
[2020-03-19 05:38] LABS: HEMATOCRIT 32.2 % (37.0-47.0); HEMOGLOBIN 10.4 gm/dL (12.0-15.0); MCH 30.3 pg (26.0-34.0); MCHC 32.3 g/dL (28.0-37.0); MCV 93.7 fL (80.0-100.0); PLATELET COUNT 249 thou/uL (150-400); RBC 3.43 mil/uL (4.20-5.00); RDW 15.1 % (10.5-14.5)
[2020-03-19 05:54] LABS: ALBUMIN 1.9 g/dL (3.4-5.0); CALCIUM 8.4 mg/dL (8.5-10.1); CREATININE 0.9 mg/dL (0.6-1.0); POTASSIUM 3.7 mmol/L (3.5-5.1); TOTAL BILIRUBIN 0.6 mg/dL (0.2-1.0); TOTAL PROTEIN 6.5 g/dL (6.4-8.2)
--- NOTE | 2020-03-19 09:03 | NUR ---
ASSUMED CARE AT 0700, ASSESSMENT AND VITAL SIGNS COMPLETED PER ICU PROTOCOL. DR. JAY ROUNDED THIS AM, PLAN OF CARE DISCUSSED, RN WILL CONTINUE TO MONITOR.
[2020-03-19 10:14] LABS: BE(vivo) -2.7 mmol/L (-2 to +3); PCO2 32.8 mmHg (35.0-45.0); PO2 59.8 mmHg (80.0-100.0); pH 7.424 (7.360-7.450); sO2 91.8 % (92.0-98.0)
[2020-03-19 11:45] LABS: LARGE PLATELETS FEW
[2020-03-20] VITALS (26 sets, daily range): BP systolic 109–167; BP diastolic 50–79
--- NOTE | 2020-03-20 07:34 | NUR ---
Assessments and interventions documented. No signs and symptoms of distress. Patient remains stable however not progressing toward goals.
--- NOTE | 2020-03-20 09:38 | NUR ---
ASSUMED CARE AT 0700, ASSESSMENT AND VITAL SIGNS COMPLETED PER ICU PROTOCOL. DR. MISTY FENG, PLAN OF CARE DISCUSSED, RN WILL CONTINUE TO MONITOR.
[2020-03-21] VITALS (23 sets, daily range): BP systolic 116–168; BP diastolic 53–97
--- NOTE | 2020-03-21 06:31 | NUR ---
Assessment and interventions documented. No adverse events throughout the night. Patient show discomfort with current sedation dosage. Titrated precedex to max dose. Patient now comfortable and sedated properly. Patient O2 stat in the 100 at current vent settings. Patient stable progressing towards goals.
--- NOTE | 2020-03-21 14:32 | NUR ---
chart review, pt remain on intubated, with tube feeding for nutritional support. noted she is still requiring iv precedex gtts. will cont following as needed for dc needs.
--- NOTE | 2020-03-21 19:00 | NUR ---
PATIENT PROGRESSING SLOWLY, EALILY AROUSES. REMAINS INTUBATED WITH VENT SETTINGS UNCHANGED. SEDATED ON PRECEDEX TAPPED DOWN. MONITOR REMAINS ABIF TUBE FEEDINGS HELD THIS AM FOR ELEVATED RESIDUALS. RESTARTED THIS AFTERNOON RESIDUAL WAS ZERO AT 1530 AND NOW AT 30ML/HR. URINE OUTPUT ADEQUATE GREATER THAN 40 ML/HR.
[2020-03-22] VITALS (41 sets, daily range): BP systolic 97–175; BP diastolic 47–92
--- NOTE | 2020-03-22 14:10 | NUR ---
CHART REVIEW. PT REMAINS INTUBATED. NURSE INDICATED THAT THEY HAVE BEGUN CPAP TRIALS. CM FOLLOWING INDICATED WITH DC PLANNING.
--- NOTE | 2020-03-22 18:40 | NUR ---
ASSUMED CARE @ 0700 03/22/20, PT ASSESSMENTS AND VSS COMPLETE PER ICU PROTOCOL. PT ENCOUNTERED ON PRECEDEX, PT EASILY AWAKENED BUT NOT FOLLOWING ANY COMMANDS. PT PLACED ON CPAP TODAY, PT FAILED AEB RR IN 40'S. DR JAY INFORMED. DR KYLE HERE TO ROUND NO NEW ORDERS RECIEVED. 1517: EFFIE CALLED FOR AN UPDATE, CODE VERIFIED AND SHE IS UPDATED.
[2020-03-23] VITALS (49 sets, daily range): BP systolic 103–176; BP diastolic 51–116
[2020-03-23 04:28] LABS: BE(vivo) -0.9 mmol/L (-2 to +3); HCO3 22.6 mmol/L (22.0-26.0); PCO2 33.3 mmHg (35.0-45.0); PO2 85.4 mmHg (80.0-100.0); pH 7.449 (7.360-7.450); sO2 96.9 % (92.0-98.0)
[2020-03-23 06:02] LABS: ABSOLUTE NEUTROPHILS 15.7 thou/uL (1.4-8.2); BASOPHILS 0.2 % (0.0-2.0); HEMATOCRIT 30.3 % (37.0-47.0); LYMPHOCYTES 1.8 % (24.0-44.0); MCH 30.7 pg (26.0-34.0); MCV 93.1 fL (80.0-100.0); MONOCYTES 4.5 % (1.0-8.0); PLATELET COUNT 277 thou/uL (150-400); POLYS 93.5 % (36.0-66.0); RBC 3.25 mil/uL (4.20-5.00); RDW 15.8 % (10.5-14.5); WBC 16.8 thou/uL (4.0-11.0)
--- NOTE | 2020-03-23 09:31 | NUR ---
ASSUMED PT CARE AT 1900, PT IS SEDATED,SA ON THE MONITOR, REMAINS ON RESTRAINS , LIGHT SEDATION WITH PRECEDEX, ASESSMENTS CHARTED, ADEQUATE URINE OUTPUT, NO CHANGES THROUGH THE NIGHT, BS STABLE, TUBE FEEDING IN PLACE WITH 8ML RESIDUAL, PASSED ON REPORT
--- NOTE | 2020-03-23 11:15 | NUR ---
Pt placed on CPAP by RT. Precedex is at 1.2 mcg/kg/hr.
--- NOTE | 2020-03-23 12:09 | NUR ---
Conference call arranged for Dr. Tse/Dr. Jasmine and pt's family at 4:30pm today. Codes provided to both dtzenaida Bueno and Carmen to discuss plan or care and prognosis.
[2020-03-23 13:05] LABS: HCO3 20.2 mmol/L (22.0-26.0); PCO2 30.1 mmHg (35.0-45.0); PO2 65.9 mmHg (80.0-100.0); pH 7.445 (7.360-7.450); sO2 94.1 % (92.0-98.0)
--- NOTE | 2020-03-23 19:30 | NUR ---
Pt remains on CPAP. RT planning to put back on previous vent settings at HS or prn. Pt tolerating tube feedings-rate increased to 50 ml/hr (Goal 65 ml). front office manager arranged to have conference call with pt's daughters and Tami Jasmine and Dedrick. No change in orders following that call. Report given to RN assuming care.
[2020-03-24] VITALS (35 sets, daily range): BP systolic 120–172; BP diastolic 52–80
[2020-03-24 04:09] LABS: BE(vivo) -2.1 mmol/L (-2 to +3); HCO3 22.3 mmol/L (22.0-26.0); PCO2 36.6 mmHg (35.0-45.0); PO2 84.5 mmHg (80.0-100.0); pH 7.402 (7.360-7.450); sO2 96.4 % (92.0-98.0)
[2020-03-24 06:02] LABS: HEMATOCRIT 30.3 % (37.0-47.0); MCHC 32.9 g/dL (28.0-37.0); MCV 94.3 fL (80.0-100.0); PLATELET COUNT 251 thou/uL (150-400); RBC 3.21 mil/uL (4.20-5.00); RDW 15.4 % (10.5-14.5); WBC 14.5 thou/uL (4.0-11.0)
[2020-03-24 06:53] LABS: ALBUMIN 1.8 g/dL (3.4-5.0); CALCIUM 7.9 mg/dL (8.5-10.1); CREATININE 0.9 mg/dL (0.6-1.0); POTASSIUM 3.7 mmol/L (3.5-5.1); TOTAL BILIRUBIN 0.6 mg/dL (0.2-1.0); TOTAL PROTEIN 5.9 g/dL (6.4-8.2)
--- NOTE | 2020-03-24 10:53 | NUR ---
FAXED CLINICAL UPDATE [place] [facility] [place]POKE WITH MAHENDRA IN ADM SHE RECEIVED UPDATE. DP TO FOLLOW.
[2020-03-24 12:13] LABS: BE(vivo) -1.5 mmol/L (-2 to +3); HCO3 23.1 mmol/L (22.0-26.0); PCO2 38.3 mmHg (35.0-45.0); PO2 78.1 mmHg (80.0-100.0); pH 7.398 (7.360-7.450); sO2 95.6 % (92.0-98.0)
[2020-03-24 12:51] LABS: ABSOLUTE NEUTROPHILS 13.2 thou/uL (1.4-8.2); METAMYELOCYTES 1 %; MYELOCYTES 1 %
[2020-03-24 12:52] LABS: ANISOCYTOSIS 1+
--- NOTE | 2020-03-24 13:07 | NUR ---
DAUGHTER PERCY CALLED AT 1307 TO INFORM HER, PATIENT HAS BEEN TAKEN OFF OF VENTILATOR. RN ASKING PERCY TO CALL OTHER SISTERS TO INFORM THEM. PERCY STATING JUST TO CALL EFFIE AND SHE WILL TAKE CARE OF THE REST. RN SPEAKING TO EFFIE AT 1310. RAHUL EDUCATED AND UPDATED ABOUT POC.
[2020-03-25] VITALS (12 sets, daily range): BP systolic 140–167; BP diastolic 61–82
--- NOTE | 2020-03-25 05:25 | NUR ---
ASSESSMENTS CHARTED, MEDS CHARTED GIVEN. TOOK OVER CARE OF PATIENT AT 1900. PT AWAKE AT START OF SHIFT. PATIENT HAD BEEN EXTUBATED DURING DAY SHIFT. PATIENT STARTED SHIFT ON FACE SHIELD WITH 35% O2. CHANGED TO NASAL CANNULA ON 4 LITERS DURING SHIFT. RECIEVING ABX IV DURING SHIFT. NON-VOCAL DURING SHIFT PARTIAL BED BATH GIVEN, SHEETS CHANGED. BASILIO AND FECAL MANAGEMENT SYSTEM IN USE. FALL PRECAUTIONS IN PLACE DURING SHIFT.
[2020-03-25 07:25] LABS: HEMOGLOBIN 10.9 gm/dL (12.0-15.0); MCH 30.1 pg (26.0-34.0); MCHC 32.2 g/dL (28.0-37.0); MCV 93.7 fL (80.0-100.0); RBC 3.63 mil/uL (4.20-5.00); RDW 15.7 % (10.5-14.5); WBC 22.5 thou/uL (4.0-11.0)
[2020-03-25 07:42] LABS: CALCIUM 8.6 mg/dL (8.5-10.1); CREATININE 0.9 mg/dL (0.6-1.0); POTASSIUM 3.4 mmol/L (3.5-5.1)
--- NOTE | 2020-03-25 11:00 | NUR ---
chart review. pt was extubated yesterday afternoon. on oxygen per nasal cannula. verbal updates provided to lccog. no anticipated dc over weekend. will cont following as needed for dc needs
--- NOTE | 2020-03-25 18:54 | NUR ---
ASSESSMENTS AND INTERVENTIONS DOCCUMENTED. PATIENT REMAINS STABKE, ORDERS FOR 3W RECIEVED. PATIENT NOT ENGAGING IN CONVERSATION ON FOLLOWING COMMANDS. PATIENT JUST TREMMORS WHEN TOUCHED OR STIMMULATED. RN SPEAKING WITH DAUGHTER EFFIE MILLER AND PATIENT'S STATUS AND POC. PATIENT STABLE BUT NOT PROGRESSING TOWARDS GOALS AT THIS TIME.
[2020-03-26] VITALS (14 sets, daily range): BP systolic 124–188; BP diastolic 60–111
[2020-03-26 06:36] LABS: HEMATOCRIT 31.1 % (37.0-47.0); HEMOGLOBIN 10.2 gm/dL (12.0-15.0); MCH 30.3 pg (26.0-34.0); MCHC 32.7 g/dL (28.0-37.0); MCV 92.8 fL (80.0-100.0); RBC 3.35 mil/uL (4.20-5.00); RDW 15.8 % (10.5-14.5); WBC 24.8 thou/uL (4.0-11.0)
[2020-03-26 06:38] LABS: CALCIUM 8.7 mg/dL (8.5-10.1); CREATININE 0.9 mg/dL (0.6-1.0); POTASSIUM 3.2 mmol/L (3.5-5.1)
--- NOTE | 2020-03-26 08:29 | NUR ---
ASSESSMENTS CHARTED, MEDS CHARTED GIVEN. AFIB ON TELEMETRY WITH BOUTS OF ELEVATED HEART RATE THAT WAS NOT SUSTAINED. FALL PRECAUTIONS IN PLACE DURING SHIFT. DID NOT APPEAR TO BE IN PAIN.
--- NOTE | 2020-03-26 20:04 | NUR ---
ASSUMED CARE OF PATIENT AT 0700. PATIENT IS NONVERBAL, HOWEVER SHE IS RIGID WITH TREMORS WITH ANY CARE OR MOVEMENT. CHRONIC AFIB. RECEIVING FEEDING THROUGH PEG TUBE AND TOLERATING WELL. PATIENT TURNED Q 2 HOURS AND PRAFO BOOTS IN PLACE. COVID POSITIVE X 2, SWAB #2 DONE TODAY. PATIENT TRANSFERRED TO AT 1600.
[2020-03-27 00:13] VITALS: BP 185/87
[2020-03-27 01:59] VITALS: BP 164/72
[2020-03-27 03:28] VITALS: BP 144/71
--- NOTE | 2020-03-27 16:58 | NUR ---
Assumed patient care at 0715. Vital signs stable, afebrile. Lung sounds are coarse, ABD is soft and non-tender, BS x's 4, skin is claen, warm, dry and intact. Patient moans and makes other vocal sounds; she does not speak or respond to verbal commands. Feeding tube is patent. No residuals, placement checked. No adverse reactions to Antibiotic Therapy. She continues on O2 at 2.5 Liters per NC. Feeding Tube is running at 65cc/hr. Respiratory Therapy continues suctioning and treatments. Will continue to monitor.
[2020-03-27 21:02] VITALS: BP 168/90
[2020-03-27 23:05] VITALS: BP 168/90
[2020-03-28] VITALS (7 sets, daily range): BP systolic 125–178; BP diastolic 60–88
--- NOTE | 2020-03-28 01:55 | NUR ---
PT NONVERBAL. OPENS EYES SPONTANEOUSLY. VSS CLEANER MODERATELY ELEVATED. HS BP MEDS GIVEM. AFEBRILE SATS 96-100%. LUNGS CONTINUE TO BE COARSE. SUCTIONING CLEAR THIN SPUTUM ORALLY. PT REPOSITIONED. MOISTURE BARRIER APPLIED TO BUTTOCKS. FMS INTACT BAG CHANGED. TF RESIDUALS 75-100 ML. UO IMPROVED FROM YESTERDAY. WILL CONTINUE TO MONITOR PT FOR CHANGES.
[2020-03-28 07:03] LABS: HEMATOCRIT 28.3 % (37.0-47.0); HEMOGLOBIN 9.3 gm/dL (12.0-15.0); MCV 93.9 fL (80.0-100.0); RBC 3.01 mil/uL (4.20-5.00); RDW 16.1 % (10.5-14.5); WBC 20.1 thou/uL (4.0-11.0)
[2020-03-28 07:06] LABS: CALCIUM 8.7 mg/dL (8.5-10.1); POTASSIUM 3.6 mmol/L (3.5-5.1)
--- NOTE | 2020-03-28 15:51 | NUR ---
MÓNICA reviewed chart and spoke with nursing and attending physician. Pt in Enhanced Isolation due to COVID-19. Repeat test was positive on 03/26. Pt was transferred to from ICU. Pt is afebrile and on 3L of O2. Pt is on IV abx/IV steroids. Palliative care physician may be consulted to discuss code status/goals of care with pt's family. MÓNICA updated Lani in admissions at [facility]. program planner to fax updates to [facility] for review. MÓNICA is following to assist as needed with discharge planning.
--- NOTE | 2020-03-28 16:36 | NUR ---
FAXED CL[place]ICAL [place] [facility] [place]POKE WITH MAHENDRA IN ADM SHE RECEIVED UPDATE. DP TO FOLLOW.
--- NOTE | 2020-03-28 19:25 | NUR ---
ASSUMED CARE APPROX 0700. PT CONFUSED AND NONVERBAL. ASSESSMENTS CHARTED AND VSS. PT AFEBRILE THIS SHIFT. AFIB ON TELE MONITOR. ON 3LNC AND SATS UPPER 90'S. BREATH SOUNDS AUDIBLY COARSE AND PT DYSNPEIC. DR. HACKETT NOTIFIED. ONETIME ORDER GIVEN FOR SOLU-MEDROL 125MG IVP, LASIX 40MG, AND CXR. ADVISED TO CALL W/ CXR RESULTS. CXR RESULTS STILL PENDING AND INFORMED [facility] N[facility] TO CONTACT DR. HACKETT W/ RESULTS. PT SLOWLY PROGRESSING TOWARDS PLAN OF CARE GOALS. WILL CONTINUE TO MONITOR.
--- NOTE | 2020-03-28 22:13 | NUR ---
NOTIFIED DR HACKETT OF RESULTS OF PCXRAY. WILL CONTINUE TO MONITOR PT FOR INCREASED SOA. INFORMED HIM HER RR WAS 24 SAT 98%, WHEEZES AND COARSE BREATH SOUNDS. BASILIO WITH CLEAR YELLOW URINE AFTER LASIX IN LG AMOUNTS.
[2020-03-29 03:28] VITALS: BP 141/63
[2020-03-29 03:46] VITALS: BP 122/58
[2020-03-29 05:59] LABS: HEMATOCRIT 31.3 % (37.0-47.0); HEMOGLOBIN 10.6 gm/dL (12.0-15.0); MCH 31.7 pg (26.0-34.0); MCHC 33.8 g/dL (28.0-37.0); MCV 93.9 fL (80.0-100.0); RBC 3.33 mil/uL (4.20-5.00); RDW 16.3 % (10.5-14.5); WBC 20.4 thou/uL (4.0-11.0)
[2020-03-29 06:34] LABS: CALCIUM 8.8 mg/dL (8.5-10.1); POTASSIUM 3.9 mmol/L (3.5-5.1)
--- NOTE | 2020-03-29 07:22 | NUR ---
PT NONVERBAL. AUDIBLE WHEEZES NOTED LAST NIGHT. DIURESED 1700 OFF AFTER LASIX. O2 STILL AT 3L. SATS 98-99% ON 3LNC. CHECKED BLOOD GLUCOSE AROUND 0400 DUE TO PT SEEMED TO BE LESS RESPONSIVE . BS 100. NO RESIDUALS NOTED TONIGHT. LESS AUDIBLE WHEEZES NOTED THIS AM. RT TX GIVEN. PCXRAY DONE. NOSKIN BREAKDOWN NOTED. MOISTURE BARRIER APPLIED TO BUTTOCKS.
[2020-03-29 08:13] VITALS: BP 139/73
--- NOTE | 2020-03-29 11:16 | NUR ---
ASSUMED CARE APPROX 0700. PT CONFUSED AND NON-VERBAL. ASSESSMENTS CHARTED AND VSS. PT'S BREATHING HAS IMPROVED FROM YESTERDAY. PT AFEBRILE. SHOWS NO SIGNS OF APPARENT PAIN. AFIB ON TELE MONITOR. ON 3LNC WITH NO DISTRESS NOTED. WILL CONTINUE TO MONITOR.
[2020-03-29 11:44] VITALS: BP 145/64
--- NOTE | 2020-03-29 15:44 | NUR ---
SW reviewed chart and spoke with nursing and attending physician. Pt is in Enhanced Isolation due to COVID-19. Pt's last positive test was completed on 03/26. Palliative care physician consulted to discuss plan of care with pt's family. SW provided update to Lani at [facility]. MÓNICA is following to assist as needed with discharge planning.
[2020-03-29 16:34] VITALS: BP 119/63
[2020-03-29 19:11] VITALS: BP 142/73
[2020-03-30 04:28] VITALS: BP 149/59
--- NOTE | 2020-03-30 05:34 | NUR ---
ASSUMED CARE AT 1900. PT RESTLESS, RIGID, AND PULLS BACK DURING CARES; HR UP EARLIER IN SHIFT, GAVE PAIN MEDS WHICH HELPED PT RELAX/REST. HAS COARSE, WHEEZY BREATH SOUNDS, O2 SATS UPPER 90'S ON 2L. CHANGED TUBE FEEDING AND TUBING, NO RESIDUAL NOTED. Q2 TURNS, GAVE BATH AND CHANGED LINENS. IN AFIB, HR 70-80'S AFTER HAVING PAIN MEDS. MEDIUM AMOUNT OF LIQUID STOOL AROUND FMS. NO OTHER CONCERNS, WILL CONTINUE TO MONITOR.
[2020-03-30 08:20] VITALS: BP 147/88
--- NOTE | 2020-03-30 08:39 | NUR ---
UPON ARRIVAL PEG TUBE FEEDING PUMP NOT FUNCTIOINING INDICATING FREE FLOW ERROR, NOT ABLE TO FIND SOLUTION TO ERROR MESSAGE, NEW TUBING AND HARD RESET, ACCORDING TO TOWER SWITCH OPERATOR THE ERROR INDICATES PUMP ROTATION NOT OCCURING BUT PUMP ROTATION MECHANICSM IS FUNCTIONAL. TUBE FEEDING SET VIA GRAVITY/DRIP AT THIS TIME. ATTEMPTED TO LOCATE OTHER FEEDING TUBE AT ICU AND CCU, NONE FOUND. WILL CONTINUE TO ADMINISTER CARE.
[2020-03-30 11:26] VITALS: BP 160/94
[2020-03-30 14:45] VITALS: BP 142/60
--- NOTE | 2020-03-30 16:39 | NUR ---
MÓNICA reviewed chart and spoke with nursing and attending physician. Pt is in Enhanced Isolation due to COVID-19. Pt is afebrile and on 2L of O@. Pt is on IV abx/IV steroids. Palliative care physician consulted and discussed code status with pt's family last evening. Family to discuss. MÓNICA provided update to Lani at [facility]. financial planner to fax clinical updates to [facility] for review. MÓNICA is following to assist as needed with discharge planning.
--- NOTE | 2020-03-30 17:00 | NUR ---
FAXED CLINICAL UPDATE TO [facility] RECEIVED CONFIRMATION AND LEFT MSG WITH MAHENDRA IN ADM.
[2020-03-30 19:52] VITALS: BP 187/96
[2020-03-31] VITALS (7 sets, daily range): BP systolic 148–190; BP diastolic 77–109
--- NOTE | 2020-03-31 07:46 | NUR ---
ASSUMED CARE AT 1900. BP ELEVATED, GAVE HYDRALAZINE OVERNIGHT. CONTINUED TO HAVE AUDIBLE COARSE/WHEEZY BREATH SOUNDS, SLIGHTLY MORE WET SOUNDING THIS AM; PT HAS TIGHT, GENERALIZED EDEMA. FIRST CHECK OF PEG TUBE HAD A HIGH RESIDUAL OF 200, FLUSHED BACK INTO TUBE AND SLOWED FEEDING UNTIL MIDNIGHT; RESIDUAL ONLY 25 ML, RETURNED RATE TO GOAL, NO FURTHER HIGH RESIDUALS. NO OTHER CONCERNS, SHIFT REPORT GIVEN AT 0700.
--- NOTE | 2020-03-31 13:45 | NUR ---
PEG TF CHANGE: Received call from pt's RN about broken TF pumps, wanting to change to bolus feeds and needing to advise about bolus regimen. Pt has been on Vital AF 1.2 at 65 ml/hr goal rate; since ICU. Now on 3W. Vital AF 1.2 does not come in cartons, thus plan to make transition back to pt's retirement formula of Jevity. Pt typically on Jevity 1.2, will replace with Jevity 1.5 while here for less overall volume needed as RN indicated pt is puffy. *Pt needs 5 cans of Jevity 1.5 daily. *Bolus 1 carton (240 ml) 5x daily at suggested times of 6a, 10a, 2p, 5p, 8p. *Decrease water flushes to 200 ml with every bolus.
--- NOTE | 2020-03-31 15:28 | NUR ---
SW reviewed chart and spoke with nursing and attending physician. Pt remains in Enhanced Isolation due to COVID-19. Pt is afebrile and on 2L of O2. Pt is on IV abx/IV steroids. Palliative care physician has discussed plan of care and code status with family. Family meeting to be scheduled. MÓNICA provided update to Lani at [facility]. MÓNICA is following to assist as needed with discharge planning.
--- NOTE | 2020-03-31 19:59 | NUR ---
PT ON 2L NC///LUNGS VERY COARSE WITH WHEEZES T/O...
[2020-04-01] VITALS (7 sets, daily range): BP systolic 147–188; BP diastolic 75–146
--- NOTE | 2020-04-01 04:04 | NUR ---
WHEN APPROACHED AT BEDSDE PT INCREASES RESPIRATORY RATE AND HAS A HIGH PITCHED THROATY NOISE, ANXIOUS AND BATS AT NURSE WHEN TOUCHED. SHE DOES NOT RESPOND TO REASSUREANCE. CONTINUES TO HAVE O2 SATS IN THE UPPER 90'S TO 100%. SCHEDULCED PAIN MEDICATION HELPS RELAX HER, AND ALLOWS HER TO SLEEP.
--- NOTE | 2020-04-01 14:16 | NUR ---
MÓNICA reviewed chart and spoke with nursing and attending physician. Pt is in Enhanced Isolation due to COVID-19. Pt is afebrile and on 2L of O2. Pt is on IV abx and IV steroids. Palliative care physician to have family meeting this evening around 1700 to discuss goals of care/code status. MÓNICA updated Lani at [facility]. [facility] [place] able to accept pt back over the weekend if family decides on palliative care/hospice. [facility] is going to [facility]. Pt will need a signed outside the hospital DNR form and also documentation stating that pt's DPOA is activated (per facility's request). MÓNICA is following and available to assist as needed with discharge planning.
--- NOTE | 2020-04-01 18:00 | NUR ---
DR WILLIS HAD A FAMILY MEETING ON PHONE WITH 3 FAMILY MEMBERS AND THEY WERE NOT VERY OPEN TO PALLITIVE CARE...
--- NOTE | 2020-04-01 18:15 | NUR ---
THIS NURSE MESSAGED DAUGHTER ROBERT AND ASKED IF FAMILY WOULD LIKE TO FACETIME THEIR MOTHER IN GROUP...ONLY ROBERT WANTED TO JOIN CONVERSATION AND SHE FACETIMED HER MOTHER FOR 10 MIN. SHE WAS SURPRISED AT HOW ILL HER MOTHER LOOKED. WILL CONTINUE TO COMMUNICATE WITH FAMILY..
[2020-04-02 01:14] VITALS: BP 156/81
[2020-04-02 04:23] VITALS: BP 178/82
--- NOTE | 2020-04-02 07:29 | NUR ---
CONTINUES TO KEEP HER OXYGEN SATS AT AROUND 100% ON 3.0 LITERS. VERY FORCEFUL COUGH THIS AM. SHE NEEDS HELP TO COVER HER MOUTH DURING COUGHING FITS. AFEBRILE, RESTING AT THIS TIME. CONTINUES TO HAVE LARGE JERKY MOVEMENTS THAT ALIGHN WITH HER NEED FOR INCREASED PAIN MANAEMENT.
[2020-04-02 08:24] VITALS: BP 131/76
[2020-04-02 11:30] VITALS: BP 187/73
[2020-04-02 17:00] VITALS: BP 135/66
[2020-04-02 20:25] VITALS: BP 176/82
[2020-04-03 03:01] VITALS: BP 178/82
--- NOTE | 2020-04-03 04:28 | NUR ---
PATIENT IS NON-VERBAL AND HAS REMAINED RESTLESS MOST OF THE NIGHT. GIVEN ATIVAN PRN WITH LITTLE ASSIST FOR CALMING. BS MONITORED PER ORDER. BP ELEVATED AND MEDICATED WITH PRN HYDRALAZINE. FECAL MANAGEMENT IN PLACE. BASILIO TO D/D WITH DARK YELLOW URINE. MEDICATION AND FEEDING PER PEG W/O COMPLICATION. WILL MONITOR.
[2020-04-03 08:10] VITALS: BP 157/68
[2020-04-03 19:59] VITALS: BP 162/82
--- NOTE | 2020-04-03 20:24 | NUR ---
SPOKE WITH DAUGHTER EFFIE AND SHE WANTS TO SPEAK WITH DR DICKSON AND HAVE A FAMILY CONFERENCE Saturday IF POSSIBLE TO DISCUSS POC. DAUGHTER ADVISED TO CALL [facility] SATURDAY MORNING.
[2020-04-04] VITALS (10 sets, daily range): BP systolic 147–194; BP diastolic 69–86
--- NOTE | 2020-04-04 03:00 | NUR ---
PT MAINLY NONVERBAL. INCOMPREHENSIBLE SOUNDS NOTED. ATIVAN GIVEN WITH LITTLE RELIEF OF AGITAION( SLAMMING ARMS ON BED AND MOANING.) LATER SCHEDULED PAIN MED GIVEN ORDERED. PT FELL ASLEEP SHORTLY AFTER. SATS 99-100% ON 2LNC. LUNGS CONTINUE TO BE COARSE WITH WHEEZES BILATERALLY. REPOSITIONING PT Q 2 HRS. ZGARD APPLIED TO BUTTOCKS. FMS INTACT DRAINING LIGHT BROWN STOOL. PRAFUL HAS MOD-LG AMTS OF YELLOW URINE. WILL CONTINUE TO MONITOR PT FOR CHANGES.
[2020-04-04 06:39] LABS: HEMATOCRIT 27.7 % (37.0-47.0); HEMOGLOBIN 9.2 gm/dL (12.0-15.0); MCH 31.6 pg (26.0-34.0); MCHC 33.1 g/dL (28.0-37.0); MCV 95.4 fL (80.0-100.0); RBC 2.9 mil/uL (4.20-5.00); RDW 17.3 % (10.5-14.5); WBC 14.3 thou/uL (4.0-11.0)
[2020-04-04 06:49] LABS: MAGNESIUM 2.4 mg/dL (1.8-2.4); POTASSIUM 4.9 mmol/L (3.5-5.1)
--- NOTE | 2020-04-04 15:05 | NUR ---
MÓNICA reviewed chart and spoke with nursing and attending physician. Pt remains in Enhanced Isolation due to COVID-19. Pt remains a full code. Palliative care physician had visited with family on 04/01 regarding goals of care. Pt's family had decided to continue the current course of treatment. Pt's dtr, Carmen, was able to Face Time with pt over the weekend. MÓNICA had message from nursing stating pt's family are requesting a meeting with attending physician. Meeting coordinated by Director of Case Mgmt for this evening at 1700. Call in # [phone] Conference ID # [phone]. MÓNICA spoke with pt's dtr/DPOA, Terra, to provide info for call. Terra to send the info to pt's family. MÓNICA updated attending physician. MÓNICA also updated Lani at [facility]. [place] [facility], facility is requesting documentation stating that pt's DPOA is activated. MÓNICA is following to assist as needed with discharge planning.
--- NOTE | 2020-04-04 19:37 | NUR ---
PT OPENS HER EYES, BUT PT DOES NOT HAVE VERBAL AND SHE DOES NOT FOLLOW COMMANDS, PT CAN MAKE SOME VOICE , PT IS ON O2 2L/MIN/NC, PT HAS PRN MEDICATIONS FOR HIGH BP AND PAIN, PT IS ON ISOLATION FOR POSITIVE COVID,
--- NOTE | 2020-04-05 04:07 | NUR ---
PT NONVERBAL BUT MOANS AND IS AGITATED AT TIMES. OPENS EYES SPONTANEOUSLY. BP ELEVATED . MEDICATED WITH HS MEDS , NOTIFIED Madeleine LALA BLOW TORCH BURNER OF INCREASED TIGHT EDEMA, COARSENESS, AND BP STAYING HIGH ACCORDING TO DAY SHIFT DESPITE HYDRALAZINE ETC. LASIX 20MG X1. UO 2000+. PT LESS LABORED AND FELL ASLEEP. BP BETTER 140s. TURNING PT Q 2 HRS. MOISTURE BARRIER APPLIED FMS FLUSHED. VERY LITTLE BM NOTED. + GAS NOTED. BS ARE HYPOACTIVE. RESIDUAL 0-2 ML SO FAR. ABD IS SLIGHTLY FIRM AND ROUND. BED DOWN. SIDE RAILS UP. WILL CONTINUE TO MONITOR PT FOR CHANGES.
[2020-04-05 04:53] VITALS: BP 147/79
[2020-04-05 08:31] VITALS: BP 170/92
[2020-04-05 11:00] VITALS: BP 150/64
--- NOTE | 2020-04-05 11:26 | NUR ---
Received awake on bed. Due medications given as prescribed, crushed and given thru PEG tube. Non verbal, moans incomprehensive words; able to open eyes. On telemetry; Afib; no signs of chest pain noted. On O2 at 3lpm via nasal cannula; suctioned secretions; mouth care rendered. On nothing per orem. With PEG tube in place- dressing changed; on Jevity bolus feeding-given as prescribed; water flushes done; no residual noted. With chavira in place- output measured and recorded accordingly; katie care done. With fecal management in place- output measured and recorded accordingly. Z guard applied to patient's buttocks, turned on her sides. With generalized edema noted- Dr Brito informed during his AM rounds- elevated extremities. With triple lumen central line at R IJ in place- dressing C/D/I; flushing well. With BP of 170/90 noted from this morning- PRN hydralazine given as prescribed. To continue monitoring patient.
--- NOTE | 2020-04-05 15:18 | NUR ---
MÓNICA reviewed chart and spoke with nursing and attending physician. Pt is in Enhanced Isolation due to COVID-19. Repeat COVID test is pending. MÓNICA contacted pt's granddtr to discuss Face Time/Virtual visit with pt later today between [phone]. MÓNICA discussed with pt's nurse and provided pt's grandtr's cell phone number. Tablet is on the unit. MÓNICA discussed with Patient Advocate. MÓNICA is following to assist as needed with discharge planning.
[2020-04-05 19:54] VITALS: BP 188/86
[2020-04-06 04:30] VITALS: BP 194/82
[2020-04-06 06:30] VITALS: BP 145/60
[2020-04-06 07:48] VITALS: BP 161/66
[2020-04-06 14:24] VITALS: BP 173/80
--- NOTE | 2020-04-06 14:29 | NUR ---
MÓNICA reviewed chart and spoke with nursing. Pt remains in Enhanced Isolation due to COVID-19. Repeat COVID test is still pending. Pt's family was able to Face Time last evening. Palliative care physician contacted family to further discuss code status and plan of care. MÓNICA updated Lani at [facility]. MÓNICA is following to assist as needed with discharge planning.
[2020-04-06 14:50] VITALS: BP 141/68
[2020-04-06 18:05] LABS: BE(vivo) 9.6 mmol/L (-2 to +3); HCO3 34.3 mmol/L (22.0-26.0); PCO2 47.5 mmHg (35.0-45.0); PO2 73.7 mmHg (80.0-100.0); pH 7.476 (7.360-7.450); sO2 95.5 % (92.0-98.0)
--- NOTE | 2020-04-06 19:13 | NUR ---
ASSUMED CARE APPROX 0700. PT AWAKE. NONVERBAL. PT ON 2LNC W/ NO SIGNS OF DISTRESS NOTED. PT'S FAMILY UPDATED ON STATUS THIS SHIFT. WAITING ON UPDATE FOR PT'S CODE STATUS AND/OR HOSPICE CARE. FAMILY WILL DECIDE. PT HAS APPARENT PAIN PRN FENTANYL AND SCHEDULED TYLENOL GIVEN AND WAS ABLE TO REST. PT SLOWLY PROGRESSING TOWARDS PLAN OF CARE GOALS. WILL CONTINUE TO MONITOR.
[2020-04-06 19:52] VITALS: BP 181/71
[2020-04-07 09:20] VITALS: BP 145/69
--- NOTE | 2020-04-07 09:39 | NUR ---
SW received voice message from pt's dtr, Carmen ([phone]). SW reviewed chart. Pt is afebrile and on 2L of O2. Pt's repeat COVID test is still pending. Awaiting input from family at this time regarding plan of care and code status. SW returned call and left voice message for Carmen. SW is following to assist as needed with discharge planning.
[2020-04-07 15:48] VITALS: BP 133/69
--- NOTE | 2020-04-07 16:48 | NUR ---
ASSUMED CARE APPROX 0700. PT SLEPT FOR MOST OF THE DAY. PT NONVERBAL, BUT DOES MOAN WHEN IN PAIN. ASSESSMENT CHARTED AND VSS. PT'S DTR, EFFIE, UPDATED ON PT STATUS. FACETIME CALL ARRANGED FOR PT'S ASSISTANT PROFESSOR OF SPANISH AND EFFIE AND IT WENT WELL. PT'S FAMILY STILL DISCUSSING PT'S CODE STATUS AND WHETHER THEY WANT TO INITIATE HOSPICE CARE. COVID RESULTS NEGATIVE. DR. WELSH NOTIFIED X2. WAITING FOR CALL BACK. WILL CONTINUE TO MONITOR.
[2020-04-07 19:33] VITALS: BP 152/96
[2020-04-08 05:30] VITALS: BP 160/90
[2020-04-08 09:09] VITALS: BP 160/86
--- NOTE | 2020-04-08 14:40 | NUR ---
SW reviewed chart and spoke with nursing. Pt remains in Enhanced Isolation due to COVID-19. REceived call from pt's dtr, Carmen, requesting another family conference call with physicians to provide update and discuss plan of care/code status. Pt's family requesting the hospitalist and palliative care physician be on the call. Request made for Saturday. 04/11 at 1700. SW contacted director of case mgmt to assist with coordinating call. SW notified attending physician and palliative care physician to see about their availability. SW provided update to Lani at [facility]. No weekend discharge planned. MÓNICA is following to assist as needed with discharge planning.
--- NOTE | 2020-04-08 15:02 | NUR ---
PT AWAKE, BUT NON VERBAL AND MOANS. BP ELEVATED MEDS GIVEN. OTHER VSS. BASILIO TO DD. MEDS AND TUBE FEEDING PER PEG. PT DOES NOT APPEAR TO BE IN ANY DISTRESS. PT CHECOUGHER WANTS FAMILY MEETING PER VIDEO ON SATURDAY..SW WORING ON THIS. PT NOT PROGRESSING TOWRADS POC GOALS AT THIS TIME.
[2020-04-08 15:14] VITALS: BP 187/86
[2020-04-08 19:22] VITALS: BP 174/75
--- NOTE | 2020-04-08 22:01 | NUR ---
PT RESTING IN BED, LUNGS COARSE, O2 PER NC. BASILIO AND FECAL TUBE INTACT. PT LOOKING AT CEILING AND AROUND IF HALLUCINATING, PT HAS INTERMITTENT PERIODS OF RESTLESSNESS WHILE IN BED DURING ASSESSMENT AND MEDICATIONS PER PEG TUBE. BED ALARM ON.
[2020-04-09 05:27] VITALS: BP 163/67
[2020-04-09 10:43] VITALS: BP 190/92
--- NOTE | 2020-04-09 14:24 | NUR ---
PT NON VERBAL, MOANS FREQUENTLY, POOR EYE CONTACT THIS SHIFT. SPOKE WITH FAMILY, THEY STATES THIS IS PT BASELINE MENTATION STATUS. PROVIDED FAMILY WITH INFO REGARDING COVID TESTING. SECOND SWAB COLLECTED AND SENT TO LAB THIS SHIFT ORDERED. FAMILY ABLE TO TALK TO PT ON PHONE TO WISH PT HAPPY BIRTHDAY. PT HAD NO RESPONSE TO FAMILY WHEN THEY SPOKE TO HER. FMS & BASILIO REMAIN PATENT AND SECURED. PT REMAINS ON 2LNC, O2 SATS 94%. FALL PRECAUTIONS IN PLACE.
[2020-04-09 20:57] VITALS: BP 187/88
[2020-04-10 02:04] VITALS: BP 153/71
[2020-04-10 06:02] VITALS: BP 151/91
--- NOTE | 2020-04-10 08:27 | NUR ---
ASSUMED CARE AT 1900. PT GRADUALLY MORE RESTLESS OVERNIGHT; GAVE ONE DOSE ROXANOL AND ONE DOSE ATIVAN THIS AM, ALONG WITH TYLENOL TWICE OVERNIGHT. THROAT/BREATHING MORE CONGESTED THIS AM, GAVE DOSE OF MUCINEX. NO RESIDUAL NOTED IN G-TUBE, GAVE TWO BOLUS FEEDINGS AND TWO WATER FLUSHES OVERNIGHT. HR AFIB IN 60-70 OVERNIGHT. MINIMAL OUTPUT FROM FMS, MOSTLY AIR. NO OTHER CONCERNS, SHIFT REPORT GIVEN AT 0700.
[2020-04-10 08:42] VITALS: BP 172/76
[2020-04-10 09:42] VITALS: BP 135/65
--- NOTE | 2020-04-10 14:51 | NUR ---
PT CARE ASSUMED AT 0700, PT ALERT TO SELF, NONVERBAL AND RESTLESS. LORAZEPAM AND SUBLINGUAL MORPHINE GIVEN. PT HAS FECAL MGT AND BASILIO CATHETER IN PLACE AND PATENT. PEG TUBE PLACEMENT CHECKED, TUBE FEEDING GIVEN INTERMITENTLY WITH FLUSH PER ORDER. PT REPOSITIONED EVERY 2 HOURS. SKIN INTACT. FALL PRECAUTION IN PLACE. BED AT LOWEST LEVELW ITH ALARM ON. WILL CONTINUE TO MONITOR
[2020-04-10 15:19] VITALS: BP 142/71
--- NOTE | 2020-04-10 18:41 | NUR ---
PT TUBE FEEDING RESIDUAL 950, RESIDUALS THROWN AWAY AND [address] WELSH PAGED TWICE WAITING FOR A CALL BACK.
--- NOTE | 2020-04-10 21:30 | NUR ---
PER MARIZA JON TO DC ENHNACED ISOLATION.
--- NOTE | 2020-04-11 07:00 | NUR ---
TRANSFERRED FROM 3W. ALERT AND AWAKE. DISORIENTED X 4. BASILIO AND RECTAL TUBE INTACT. HYPOGLYCEMIA TREATED PER MD ORDER, RESOLVED NOW. THIS AM PEG REDISUAL WAS 320CC. REPORTED TO ELEVATOR RUNNER WHOLESALE DIAMOND BROKER AND RECEIVED AN ORDER TO HOLD 0600 FEEDING. WILL ENDORDER AM NURSE FOR F/U. NO S/S ACUTE DISTRESS NOTED OR REPORTED AT THIS TIME. WILL CONT TO MONITOR FOR ANY CHAGNES IN CONDITION.
[2020-04-11 07:26] VITALS: BP 67/38
[2020-04-11 08:07] VITALS: BP 87/40
[2020-04-11 08:32] LABS: BE(vivo) 10.7 mmol/L (-2 to +3); HCO3 32.8 mmol/L (22.0-26.0); PCO2 34.5 mmHg (35.0-45.0); pH 7.596 (7.360-7.450)
[2020-04-11 08:33] LABS: PO2 41.1 mmHg (80.0-100.0)
--- NOTE | 2020-04-11 09:20 | NUR ---
Pt. with decreased o2 sats. EXECUTIVE TEAM LEADER activated. See EXECUTIVE TEAM LEADER documentation
--- NOTE | 2020-04-11 13:39 | NUR ---
PT TRANSFERED TO 4W FROM 3W THIS AM AFTER PT HAD 4 NEGATIVE COVID TEST RESULTS. A RAPID HAD BEEN CALLED ON PT THIS AM. PT IS NOW ON NON REBREATHER. THERE HAD BEEN A SKYPE MEETING SET UP FOR 1699. CALL IN NUMBER IS MTG ID IS [phone]). CM CALLED AND PROVIDED THIS INFO TO PT'S DTR DPIVY GREER. SHE INDICATED SHE WOULD SHARE IT WITH THE REST OF THE FAMILY. CM PROVIDED CALL IN INFO TO DR. WILLIS AND DR. WELSH. DR. WILLIS SAW PT AND REACHED OUT TO PERCY INDICATING THAT SHE SHOULD COME AND SEE PT HER CONDITION IS WORSENING. HE INIDATED THAT WE NEED CODE STATUS CLIRIFIED SOONER RATHER THAN LATER LIKELY BEFORE 1699 PHONE CONFERENCE. CM TO FOLLOW INDICATED WITH DC PLANNING.
[2020-04-11 15:07] VITALS: BP 95/48
--- NOTE | 2020-04-11 19:35 | NUR ---
ASSUMED CARE AT 0700. PT VITALS AND O2 THIS AM WERE UNSTABLE. PT LUNG SOUNDS COARSE, INCREASE IN O2 NEED. RAPID REPSONSE CALLED. MEDS ORDERED AND GIVEN. ABG DRAWN. CHEST XRAY DONE. PT ON TELE WITH KNOWN ARRYTHMIA. AFTER RAPID, PT ON 15L NRB MASK. NPO. PEG TUBE IN PLACE TO GRAVITY DRAINAGE. 600 GREEN OUTPUT. BASILIO AND RECTAL TUBE IN PLACE. MINIMAL URINE OUTPUT. BLOOD SUGARS HAVE BEEN LOW. D5 IV PUSH GIVEN. TL IJ IN PLACE. PT IS ALERT BUT NONVERBAL, DOES NOT FOLLOW COMMANDS. RESTLESS WITH MEDS GIVEN PRN. FAMILY AT BEDSIDE TO DISCUSS CURRENT CODE STATUS. FALL PRECAUTIONS IN PLACE. WILL CONTINUE TO MONITOR
[2020-04-11 20:15] VITALS: BP 107/48
--- NOTE | 2020-04-12 04:45 | NUR ---
Pt. lung sounds are coarse upon ausculation. She is on 13 liters of 02 via non-rebreather. O2 saturation is 100%. Head of the bed elevated. Pt. will open her eyes, but is non-verbal. Turned and repositioned for comfort. Bed alarm is on.
[2020-04-12 07:39] VITALS: BP 143/63
--- NOTE | 2020-04-12 15:10 | NUR ---
CM PARTICIPATED IN PHONE CONFERENCE WITH DR. WILLIS PT'S OLDEST SON AND DTR EFFIE YESTERDAY EVENING AT 1700 PT'S DPOA PERCY WAS ALSO ON THE PHONE. CODE STATUS WAS DISCUSSED AND GOALS OF CARE. NO DEFINITIVE DECISIONS WERE MADE AT TIME OF CALL YESTERDAY. FAMILY WANTED TO SPEAK AMONGST THEMSELVES. ROBIN FOLLOWED UP WITH MIREYA GREER YESTERDAY EVENING AND SHE INDICATED THAT ANITHA WAS ORDERING IMAGING OF HER STOMACH AND SHE WANTED TO REVIEW THOSE FINDINGS. ANITHA SPOKE SIRIHT PERCY THIS AM AND THEY MADE PT A DNR NO CODE. ROBIN SPOKE WIHT HER THIS AFTERNOON ASKED ABOUT EVALUATION FOR HOSPICE HOUSE OR HOSPICE SERVICES AND SHE INDIATED THAT THEY WANTED TO PURSUE AGRESSIVE TREATMENT AT THIS TIME. SHE ASKED ABOUT WHY PT CAN'T GET FLUID OFF HER LUNGS AND WHAT WE'RE GOING TO BE DOING TO TREAT RASH ON HER LOWER ABDOMEN. CM TO FOLLOW INDICATED WITH DC PLANNING.
--- NOTE | 2020-04-12 17:29 | NUR ---
ASSUMED CARE AT 0700. PT IS RESTLESS, NONVERBAL. DOESN'T FOLLOW COMMANDS. PT CHANGED TO NO CODE STATUS TODAY. VSSA/15L NRB. DC TELE. NPO. PEG TO GRAVITY DRAIN. MEDS GIVEN FOR AGITATION. FENT PATCH APPLIED. BASILIO AND RECTAL TUBES IN PLACE WITH MINIMAL OUTPUT. Q2 TURNS. DAUGHTER AT BEDSIDE. WILL CONTINUE TO MONITOR
[2020-04-12 19:37] VITALS: BP 139/79
--- NOTE | 2020-04-13 04:06 | NUR ---
PATIENT IS NON VERBAL. WILL OPEN HER EYES OCCASSIONALLY. BASILIO TO D/D WITH DARK URINE. PEG TUBE DRAINING. FECAL MANAGEMENT IN PLACE. BS MONITORED PER ORDER. PATIENT IS ON 15L NON RE-BREATHER MASK MANAGED BY RT. GIVEN MORPHINE X1 AT TIME OF THIS NOTE FOR INCREASED BREATHING. FAMILY CHANGED CODE STATUS 04/12/20 TO DNR. POSSIBLE DISCUSSION REGARDING HOSPICE WITH FAMILY. APPEARS TO BE SLEEPING MOST OF THE NIGHT. TURNING, WILL MONITOR.
[2020-04-13 07:33] VITALS: BP 134/87
--- NOTE | 2020-04-13 10:15 | NUR ---
per hospitalist spoke with family yesterday and wanting dnr alone with hospice care.
[2020-04-13 13:54] VITALS: BP 131/71
[2020-04-13 19:48] VITALS: BP 119/99
--- NOTE | 2020-04-13 20:03 | NUR ---
Assumed pt care this am, pt is non verbal and unresponsive. FC in place no output noted. PEG tube connected to a drain bag and fecal management in place no output noted on both. medication given via PEG tube. Asked MD if feeding and hydration be given via peg сергей thomson there was not output iin the past 24 hours, MD orders for no feedings and water via peg tube to stand though pt is on comfort care as of now since family has not decided for hospice house . Complete bed bath given, on NRB at 15 liters, so signs of distress noted. Elevated temp in the am, medication given and managed. Endorsed to the night nurse.
--- NOTE | 2020-04-14 03:28 | NUR ---
Assumed pt care at 1900. Pt opens eyes to name but non verbal,fidgeting her hands/legs frequently,gargling on assessment. Morphine administered with relief noted. VSS,though a little tachy. Pt's on a Non-rebreather mask. Denise catheter to DD draining yellow urine. PEG tube connected to DD with moderate greenish liquid noted. No emesis noted so far. Rectal tube in place with scant BM. Repositioned as tolerated. Resting quietly at this time no distress noted,eyes closed will continue to monitor pt.
[2020-04-14 04:25] VITALS: BP 141/63
[2020-04-14 07:19] VITALS: BP 126/78
--- NOTE | 2020-04-14 10:28 | NUR ---
cm sent message to hospitalist rt which family member made pt comfort. pt daughter carter at bedside. per hospitalist he been talking with jin and wants comfort, already made dnr few days ago. hospitalist visit with daughter carter at bedside..
--- NOTE | 2020-04-14 15:28 | NUR ---
Assumed pt care, this am, spoke with daughter Lizz who is the dpoa. Repeatedly said that she as of now wants aggressive treatment for her mother and NOT hospice. Verbalized that MD has been pushing for hospice and that she does not agree with this and would like that food or water or hydration be given if possible. DPOA feels she is not given the decision and is being pushed towards hospice where she is not ready to go that route. POC followed, FC in place draining yellow urine, PEG tube going into a drain bag, Fecal management system draining with minimal out put. Awaiting orders, aggitation is managed with medication.
[2020-04-14 16:03] VITALS: BP 143/66
--- NOTE | 2020-04-14 18:29 | NUR ---
Dr. Brito called in the phone and spoke to Lizz the DPOA.
[2020-04-14 19:48] VITALS: BP 104/55
[2020-04-15 00:04] VITALS: BP 129/53
--- NOTE | 2020-04-15 04:47 | NUR ---
ASSUMED CARE OF PT AT 1900. PT IS ON A NONRESPONSIVE AND IS AWAKE. APPEARS TO STRUGGLE WITH SOB. CURRENTLY ON A VENTI MASK AT 15 LITERS. HAS AIR HUNGER AND NEEDS SUCTIONING EVERY 2-4 HOURS WITH ASSISTANCE FROM RT WITH DEEP SUCTIONING. PRN PAIN MEDICATION GIVEN Q4 HOURS FOR PAIN AND AIR HUNGER. BASILIO AND FECAL MANAGEMENT IN PLACE AND PATENT. MOUTH CARE DONE REGULARLY THE PT IS MOUTH BREATHING AND HAS DRY MOUTH. VSS. AFEBRILE. NOTIFIED GENERAL INTERNIST AND PHYSICIAN LEADER OF CONCERNS THAT PREVIOUS NURSE INFORMED THIS NURSE OF. GENERAL INTERNIST AND PHYSICIAN LEADER STATED SHE WILL ADDRESS CONCERNS WITH PHYSCIAN OVER COMFORT CARE AND FAMILY CONCERNS. FALL PRECAUTIONS ARE IN PLACE, CALL LIGHT IS WITHIN REACH. FREQUENT ROUNDING COMPLETED. WILL CONTINUE TO MONITOR.
[2020-04-15 05:12] VITALS: BP 100/74
[2020-04-15 07:33] VITALS: BP 146/114
--- NOTE | 2020-04-15 09:00 | NUR ---
brittany went to see brittany theodore cont to wear own face mask and shield. pt lay in bed, eyes closed, did not respond to any verbal communication. eyes closed during visit. pt on vent mask 15L.
[2020-04-15 10:48] LABS: HEMOGLOBIN 9.8 gm/dL (12.0-15.0); WBC 6.9 thou/uL (4.0-11.0)
[2020-04-15 10:50] LABS: HEMATOCRIT 28.9 % (37.0-47.0); MCH 32.3 pg (26.0-34.0); RBC 3.04 mil/uL (4.20-5.00); RDW 19.3 % (10.5-14.5)
[2020-04-15 11:18] LABS: CALCIUM 7.6 mg/dL (8.5-10.1); CREATININE 3.4 mg/dL (0.6-1.0); POTASSIUM 5.4 mmol/L (3.5-5.1)
--- NOTE | 2020-04-15 13:50 | NUR ---
Assumed pt care at 7am.Pt on comfort care but family still wanted tube feeding Dr Brito here,order noted.Zosyn and D5NS initiated around 1100.Assessment completed.Pt on venrti mask with o2 at 15liter.Oral care done as needed with reposition.Will continue to monitor.
[2020-04-15 16:50] VITALS: BP 118/76
[2020-04-15 19:17] VITALS: BP 122/56
--- NOTE | 2020-04-16 02:34 | NUR ---
ASSUMED CARE OF PT AT 1900. PT IS NON-RESPONSIVE AND APPEARS TO BE IN AND OUT OF SLEEP/WAKE. PEG TUBE FEEDINGS RESTARTED. TEMPERATURE ELEVATED. PRN TYLENOL GIVEN. BLOOD SUGAR ELEVATED. NOTIFIED PROJECTS MANAGER. ORDERS GIVEN FOR INSULIN AND TO D/C CURRENT FLUID ORDER AND CHANGE. VENTI-MASK WITH HIGH FLOW TUBING AT 15 IMPLEMENTED. SCHEDULED BRTX GIVEN. PT EXPERIENCING AIR HUNGER. PRN GIVEN. BASILIO AND FECAL MANAGEMENT SYSTEM IN PLACE AND PATENT. FALL PRECAUTIONS ARE IN PLACE, CALL LIGHT IS WITHIN REACH. WILL CONTINUE TO MONITOR.
[2020-04-16 07:25] VITALS: BP 102/48
--- NOTE | 2020-04-16 08:30 | NUR ---
Assumed pt care at 7am.Assessment completed.vss fluctuates with labored breathing and respiration greater than 24.Dr Brito rounded on pt and some lab drawn and sent to lab.Tube feeding continues.Pt dpoa updated and came to see pt and stays till around 1540. At 1545 pt started declining and bp was 70/14. Dr Brito notified order received.At 1638, pt . summary completed per protocol.Family came to see pt before picked up at 2009 by security.
[2020-04-16 10:56] LABS: CALCIUM 7.8 mg/dL (8.5-10.1); CREATININE 4.3 mg/dL (0.6-1.0); POTASSIUM 4.8 mmol/L (3.5-5.1)
[2020-04-16 12:17] LABS: CALCIUM 7.4 mg/dL (8.5-10.1); POTASSIUM 5.5 mmol/L (3.5-5.1)
[2020-04-16 15:35] VITALS: BP 70/14
== END 2020-04-16 20:10 | DRG 870 ==
LOC: ER 22:16 → ICU 03-14 00:22 → EROBS 03-14 00:22 → ICU 03-14 01:40 → 3W 03-26 16:00 → 4W 04-10 22:11
PROVIDERS: Emergency Medicine; Hospitalist; Internal Medicine; Internal Medicine Pulmonary Disease; Nurse Practitioner Family; Pediatrics; Specialist; ADMIT Internal Medicine; ATTEND Internal Medicine
PROC: 5A1955Z Respiratory Ventilation, Greater than 96 Consecutive Hours (ICD-10-PCS; principal; 2020-03-14)
PROC: 0BH17EZ Insertion of Endotracheal Airway into Trachea, Via Natural or Artificial Opening (ICD-10-PCS; principal; 2020-03-14)
PROC: 02HV33Z Insertion of Infusion Device into Superior Vena Cava, Percutaneous Approach (ICD-10-PCS; principal; 2020-03-14)
PROC: XW13325 Transfusion of Convalescent Plasma (Nonautologous) into Peripheral Vein, Percutaneous Approach, New Technology Group 5 (ICD-10-PCS; 2020-03-15)
DX: A41.89 Other specified sepsis (principal); U07.1 COVID-19; J12.89 Other viral pneumonia; J96.01 Acute respiratory failure with hypoxia; J15.6 Pneumonia due to other Gram-negative bacteria; E43 Unspecified severe protein-calorie malnutrition; G92 Toxic encephalopathy; K56.600 Partial intestinal obstruction, unspecified as to cause; K56.7 Ileus, unspecified; E87.0 Hyperosmolality and hypernatremia; N39.0 Urinary tract infection, site not specified; N17.9 Acute kidney failure, unspecified; I48.20 Chronic atrial fibrillation, unspecified; J44.0 Chronic obstructive pulmonary disease with (acute) lower respiratory infection; F03.90 Unspecified dementia, unspecified severity, without behavioral disturbance, psychotic disturbance, mood disturbance, and anxiety; E86.0 Dehydration; D64.9 Anemia, unspecified; I10 Essential (primary) hypertension; E78.00 Pure hypercholesterolemia, unspecified; R65.20 Severe sepsis without septic shock; E78.5 Hyperlipidemia, unspecified; F41.9 Anxiety disorder, unspecified; F32.9 Major depressive disorder, single episode, unspecified; I95.9 Hypotension, unspecified; R13.10 Dysphagia, unspecified; D69.6 Thrombocytopenia, unspecified; I48.0 Paroxysmal atrial fibrillation; B96.4 Proteus (mirabilis) (morganii) as the cause of diseases classified elsewhere; Z66 Do not resuscitate; Z96.642 Presence of left artificial hip joint; Z79.899 Other long term (current) drug therapy; Z68.31 Body mass index [BMI] 31.0-31.9, adult
CPT/HCPCS: 10045; 10047; 10078; 10879